=== PATIENT | female | born 1955 | race Caucasian/White ===

== ENCOUNTER 2020-06-04 12:57 | Outpatient (REF) | payer OTHER, SELFPAY ==
[2020-06-04 13:50] LABS: Glucose Urine UA NEG (NEG); Leukocyte Esterase Urine NEG (NEG); Nitrite Urine NEG (NEG); Urine Blood TRACE (NEG); Urine Ketones NEG (NEG); Urine Protein NEG (NEG-TRACE)
[2020-06-04 13:53] LABS: Appearance Urine CLEAR; Color Urine YELLOW
[2020-06-04 13:53] LABS: Hematocrit 41.5 % (37-47); Hemoglobin 13.7 g/dl (12.0-16.0); Mean Corpuscular Hemoglobin 30.9 pg (27.0-33.0); Mean Corpuscular Volume 93.5 fL (80-98); Mean Platelet Volume 9.2 fL (9.4-12.3); Platelet Count 206 X10*3/uL (160-400); Red Blood Count 4.44 X10*6/uL (4.20-5.50); Red Cell Distribution Width 13.1 % (11.0-16.0); White Blood Count 3.7 X10*3/uL (4.8-10.8)
[2020-06-04 14:03] LABS: WBC Urine 0-2 /HPF (0-4)
[2020-06-04 14:04] LABS: Mucus Urine 1+ /LPF; Squamous Epithelial Cell Urine TRACE /LPF
[2020-06-04 14:15] LABS: Alanine Aminotransferase 17 U/L (0-31); Albumin Level 4.2 g/dL (3.5-5.0); Alkaline Phosphatase 80 U/L (39-117); Anion Gap 10 (12-20); Aspartate Amino Transferase 17 U/L (5-31); Bilirubin Total 0.5 mg/dL (0.0-1.0); Blood Urea Nitrogen 11 mg/dL (9-16); C Reactive Protein 0.45 mg/dL (< or = 0.50); Calcium 9.1 mg/dL (8.4-10.2); Carbon Dioxide 30 mmol/L (22-29); Chloride 106 mmol/L (96-108); Cholesterol 219 mg/dL; Estimated Glomerular Filt Rate > 60; Glucose Fasting 84 mg/dL (60-99); HDL Cholesterol 57 mg/dL; LDL Cholesterol Calculated 146 mg/dl; Potassium 4.4 mmol/l (3.3-5.1); Sodium 142 mmol/L (135-145); Total Protein 6.4 g/dL (6.5-8.0); Triglycerides 83 mg/dL
[2020-06-04 14:32] LABS: SARS COV2 IgG Negative (Negative)
[2020-06-04 14:36] LABS: TSH reflex Free T4 0.38 mIU/mL (0.32-4.0); Vitamin D 25-OH Total 29.7 ng/mL (>30)
[2020-06-04 15:16] LABS: Erythrocyte Sedimentation Rate 11 MM/HR (0-20)
== END 2020-06-04 12:58 | disposition home or self-care (01) ==
LOC: HO.HMGCLDS 12:57
PROVIDERS: PCP Internal Medicine; Visit Provider Internal Medicine
DX: E78.5 Hyperlipidemia, unspecified (principal); Z00.00 Encounter for general adult medical examination without abnormal findings; E55.9 Vitamin D deficiency, unspecified
CPT/HCPCS: 36415; 80053; 80061; 81001; 82306; 84443; 85027; 85652; 86140; 86769

== ENCOUNTER 2020-07-26 16:15 | Outpatient (REF) | payer OTHER, SELFPAY ==
--- NOTE | 2020-07-26 16:20 | XR_ITS ---
EXAMINATION: XR CHEST CLINICAL INFORMATION: Shortness of breath COMPARISON: None TECHNIQUE: 2 views of the chest were obtained. FINDINGS: The cardiac and mediastinal contours are normal. The lungs are clear. There is no pleural effusion or pneumothorax. There are mild degenerative changes of the spine. XR/XR chest 2V IMPRESSION: No evidence for acute disease in the chest.
== END 2020-07-26 16:16 | disposition home or self-care (01) ==
LOC: HO.HMGCX 16:15
PROVIDERS: PCP Internal Medicine; Visit Provider Internal Medicine
DX: R06.02 Shortness of breath (principal); J45.909 Unspecified asthma, uncomplicated
CPT/HCPCS: 71046

== ENCOUNTER 2020-08-20 14:06 | Outpatient (REF) | payer OTHER, SELFPAY ==
[2020-08-20 15:15] LABS: MANUAL DIFF FLAG NO
[2020-08-20 15:17] LABS: Basophils Absolute Auto 0.1 X10*3/uL (0.0-0.2); Basophils Percent Auto 1.2 % (0-2); Eosinophils Absolute Auto 0.5 X10*3/uL (0.0-0.4); Eosinophils Percent Auto 9.2 % (0-4); Hematocrit 41.6 % (37-47); Hemoglobin 13.7 g/dl (12.0-16.0); Imm Gran Abs Auto 0.02 X10*3/uL (0.00-0.03); Imm Gran Pct Auto 0.4 % (0.0-0.4); Lymphocytes Absolute Auto 1.7 X10*3/uL (1.2-4.9); Mean Corpuscular HGB Conc 32.9 g/dl (31.0-35.0); Mean Corpuscular Hemoglobin 30.6 pg (27.0-33.0); Mean Corpuscular Volume 92.9 fL (80-98); Mean Platelet Volume 9.3 fL (9.4-12.3); Monocytes Absolute Auto 0.4 X10*3/uL (0.1-1.2); Monocytes Percent Auto 7.2 % (2-11); Neutrophils Absolute Auto 2.3 X10*3/uL (2.0-8.3); Platelet Count 222 X10*3/uL (160-400); Red Blood Count 4.48 X10*6/uL (4.20-5.50); Red Cell Distribution Width 12.7 % (11.0-16.0); White Blood Count 4.9 X10*3/uL (4.8-10.8)
== END 2020-08-20 14:07 | disposition home or self-care (01) ==
LOC: HO.LAB 14:06
PROVIDERS: PCP Internal Medicine; Visit Provider Internal Medicine Pulmonary Disease
DX: J45.909 Unspecified asthma, uncomplicated (principal); Z87.891 Personal history of nicotine dependence; Z91.09 Other allergy status, other than to drugs and biological substances
CPT/HCPCS: 36415; 82785; 85025; 86003

== ENCOUNTER 2020-09-13 15:19 | Outpatient (REF) | payer OTHER, SELFPAY ==
--- NOTE | 2020-09-13 16:52 | PFT_ITS ---
INDICATION: Shortness of breath. SPIROMETRY: The FEV1 to FVC 80% with an FEV1 of 2.61 L, which is 108% predicted, and an FVC of 3.27 L, which is 103% predicted. No significant response to bronchodilators noted. Maximum voluntary ventilation 110% predicted. LUNG VOLUMES: Total lung capacity 105% predicted with an expiratory reserve volume of 28% predicted and diffusion capacity of 84% predicted. COMPARISONS: None. INTERPRETATION: No obstructive nor restrictive ventilatory defects identified. No significant response to bronchodilators noted. Normal maximum voluntary ventilation. Lung volumes are normal except for low expiratory reserve volume secondary to an elevated BMI. Diffusion capacity is within normal limits. If asthma is in the differential, methacholine challenge may be helpful in assessing for hyper-reactive airways, otherwise clinical correlation warranted. Nabor Barr MD MR/MODL / [id number]
== END 2020-09-13 15:20 | disposition home or self-care (01) ==
LOC: HO.RESP 15:19
PROVIDERS: Visit Provider Internal Medicine Pulmonary Disease
DX: R06.02 Shortness of breath (principal)
CPT/HCPCS: 94060; 94727; 94729

== ENCOUNTER 2021-04-02 10:37 | Outpatient (REF) | payer OTHER, SELFPAY ==
[2021-04-02 13:44] LABS: Hematocrit 39.9 % (37-47); Hemoglobin 13.5 g/dl (12.0-16.0); Mean Corpuscular HGB Conc 33.8 g/dl (31.0-35.0); Mean Corpuscular Volume 91.7 fL (80-98); Mean Platelet Volume 9.4 fL (9.4-12.3); Platelet Count 255 X10*3/uL (160-400); Red Blood Count 4.35 X10*6/uL (4.20-5.50); White Blood Count 3.4 X10*3/uL (4.8-10.8)
[2021-04-02 14:17] LABS: Alanine Aminotransferase 18 U/L (0-31); Albumin Level 4.2 g/dL (3.5-5.0); Alkaline Phosphatase 74 U/L (39-117); Anion Gap 14 (12-20); Aspartate Amino Transferase 15 U/L (5-31); Bilirubin Total 0.4 mg/dL (0.0-1.0); Blood Urea Nitrogen 11 mg/dL (9-16); C Reactive Protein 0.27 mg/dL (< or = 0.50); Calcium 9.5 mg/dL (8.4-10.2); Carbon Dioxide 28 mmol/L (22-29); Chloride 106 mmol/L (96-108); Estimated Glomerular Filt Rate > 60; Glucose Random 86 mg/dL (60-115); Potassium 4.5 mmol/L (3.3-5.1); Rheumatoid Factor < 15.0 IU/mL (<15.0); Sodium 143 mmol/L (135-145); Total Protein 6.4 g/dL (6.5-8.0)
[2021-04-04 04:36] LABS: Immunoglobulin E 14 kU/L (<OR=114)
[2021-04-04 20:52] LABS: Anti Nuclear Antibody Screen POSITIVE (NEGATIVE)
[2021-04-08 21:46] LABS: Cyclic Citrullinated Peptide <16 UNITS
== END 2021-04-02 10:38 | disposition home or self-care (01) ==
LOC: HO.HMGCLDS 10:37
PROVIDERS: Internal Medicine Pulmonary Disease; PCP Internal Medicine; Visit Provider Internal Medicine
DX: J45.909 Unspecified asthma, uncomplicated (principal); M25.50 Pain in unspecified joint; Z91.09 Other allergy status, other than to drugs and biological substances
CPT/HCPCS: 36415; 80053; 82785; 85027; 86038; 86039; 86140; 86200; 86431

== ENCOUNTER 2021-06-19 14:04 | Outpatient (REF) | payer OTHER, SELFPAY ==
[2021-06-19 16:18] LABS: Appearance Urine CLEAR; Color Urine YELLOW; Glucose Urine UA NEG (NEG); Leukocyte Esterase Urine NEG (NEG); Nitrite Urine NEG (NEG); Specific Gravity - Urine <= 1.005 (1.005-1.025); Urine Blood TRACE (NEG); Urine Ketones NEG (NEG); Urine Protein NEG (NEG-TRACE)
[2021-06-19 16:42] LABS: WBC Urine 0-2 /HPF (0-4)
[2021-06-19 16:43] LABS: RBC Urine 0-2 /HPF (0); Squamous Epithelial Cell Urine TRACE /LPF
[2021-06-19 16:55] LABS: Vitamin D 25-OH Total 32.4 ng/mL (>30)
[2021-06-20 17:13] LABS: Complement C3 98 mg/dL (83-193)
[2021-06-23 13:41] LABS: Anti Nuclear Antibody Screen POSITIVE (NEGATIVE)
== END 2021-06-19 14:05 | disposition home or self-care (01) ==
LOC: HO.HMGCLDS 14:04
PROVIDERS: PCP Internal Medicine; Visit Provider Internal Medicine
DX: M35.9 Systemic involvement of connective tissue, unspecified (principal); E55.9 Vitamin D deficiency, unspecified
CPT/HCPCS: 36415; 81001; 82306; 86038; 86039; 86160

== ENCOUNTER 2023-02-15 11:40 | Outpatient (REF) | payer OTHER, SELFPAY ==
[2023-02-15 13:35] LABS: MANUAL DIFF FLAG NO
[2023-02-15 14:05] LABS: Basophils Absolute Auto 0.1 X10*3/uL (0.0-0.2); Basophils Percent Auto 1.5 % (0-2); Eosinophils Absolute Auto 0.1 X10*3/uL (0.0-0.4); Eosinophils Percent Auto 3.1 % (0-4); Hematocrit 38.7 % (37.0-47.0); Hemoglobin 12.9 g/dl (12.0-16.0); Imm Gran Abs Auto 0.01 X10*3/uL (0.00-0.03); Imm Gran Pct Auto 0.3 % (0.0-0.4); Lymphocytes Absolute Auto 1.2 X10*3/uL (1.2-4.9); Lymphocytes Percent Auto 37.3 % (20-40); Mean Corpuscular HGB Conc 33.3 g/dl (31.0-35.0); Mean Corpuscular Hemoglobin 31.4 pg (27.0-33.0); Mean Corpuscular Volume 94.2 fL (80.0-98.0); Mean Platelet Volume 9.8 fL (9.4-12.3); Monocytes Absolute Auto 0.3 X10*3/uL (0.1-1.2); Neutrophils Absolute Auto 1.6 x10*3/uL (2.0-8.3); Neutrophils Percent Auto 49.8 % (45-73); Platelet Count 202 X10*3/uL (160-400); Red Blood Count 4.11 X10*6/uL (4.20-5.50); White Blood Count 3.3 X10*3/uL (4.8-10.8)
[2023-02-15 15:10] LABS: Alanine Aminotransferase 13 U/L (0-31); Alkaline Phosphatase 73 U/L (39-117); Anion Gap 11 (12-20); Aspartate Amino Transferase 15 U/L (5-31); Bilirubin Total 0.5 mg/dL (0.0-1.0); Blood Urea Nitrogen 13 mg/dL (9-16); Calcium 9.5 mg/dL (8.4-10.2); Carbon Dioxide 27 mmol/L (22-29); Chloride 107 mmol/L (96-108); Cholesterol 235 mg/dL; Estimated Glomerular Filt Rate > 60; Glucose Fasting 93 mg/dL (60-99); HDL Cholesterol 49 mg/dL; LDL Cholesterol Calculated 160 mg/dl; Magnesium 2.1 mg/dL (1.6-2.6); Potassium 4.1 mmol/L (3.3-5.1); Sodium 141 mmol/L (135-145); Total Protein 6.6 g/dL (6.5-8.0); Triglycerides 133 mg/dL
[2023-02-15 15:15] LABS: TSH reflex Free T4 0.56 uIU/mL (0.32-4.0); Vitamin D 25-OH Total 59.8 ng/mL (>30)
[2023-02-15 16:42] LABS: Appearance Urine Clear; Color Urine Yellow; Glucose Urine UA Negative (Negative); Leukocyte Esterase Urine Trace (Negative); Nitrite Urine Negative (Negative); PH 6.5 (5.0-9.0); UMIC TRIGGER UA YES; Urine Blood Negative (Negative); Urine Ketones Negative (Negative); Urine Protein Negative (Neg-Trace)
[2023-02-15 16:47] LABS: Bacteria Urine None Seen (None Seen); Hyaline Casts Urine 0-2 /LPF (0-2); RBC Urine 0-2 /HPF (0-2); Squamous Epithelial Cell Urine 0-2 /HPF (0-2); WBC Urine 0-5 /HPF (0-5)
== END 2023-02-15 11:41 | disposition home or self-care (01) ==
LOC: HO.HMGCLDS 11:40
PROVIDERS: PCP Internal Medicine; Visit Provider Internal Medicine
DX: Z00.00 Encounter for general adult medical examination without abnormal findings (principal); E55.9 Vitamin D deficiency, unspecified; E78.5 Hyperlipidemia, unspecified
CPT/HCPCS: 36415; 80053; 80061; 81001; 82306; 83735; 84443; 85025

== ENCOUNTER 2023-02-15 12:40 | Outpatient (AMB) | payer OTHER, SELFPAY ==
[2023-02-15 12:43] VITALS: BP 126/70; PULSE 78; TEMP 36.6; O2SAT 96
--- NOTE | 2023-02-15 12:43 | AM.OFFWIN_ITS ---
Intake Vital Signs 02/15/23 12:43 Height 5 ft 3.5 in BP 126/70 Blood Pressure Location Lt brachial Position Sitting Pulse 78 Pulse Source Pulse Oximeter Temp 98 F Temp Source Oral Pulse Oximetry (%) 96 Oxygen Delivery Method Room Air Intake Visit Reasons: EST/growths on wrist and [id number] Intake Note: Pt is here today for growth skin on face, legs and arms, Pt states she been receiving them since June Patient Tobacco Use Status: Former Tobacco user Quit Date: 28 years old Allergies amoxicillin Allergy (Unknown, Verified 02/15/23 12:43) Unknown penicillin V Allergy (Unknown, Verified 02/15/23 12:43) Unknown Sulfa (Sulfonamide Antibiotics) Allergy (Unknown, Verified 02/15/23 12:43) Unknown Do you need a note to return to daycare/school/sports/work: No HPI EST/growths on wrist and [phone] HPI Details 67-year-old female presents to the office for a sick visit. Patient is reporting that she has a wart on the left wrist and on the left knee. She would like to know her options. [facility] Medical History (Updated 02/15/23 @ 13:45 by Stanley Arita MD) KARSTEN positive Annual physical exam Arthralgia Asthma Autoimmune disease DJD (degenerative joint disease), cervical Hyperlipemia Occipital neuralgia SOB (shortness of breath) Urinary incontinence Vitamin D deficiency Surgical History (Updated 01/01/23 @ 13:55 by Marlin Epstein MD) H/O colonoscopy No pertinent past surgical history Family History (Updated 01/01/23 @ 13:17 by Azeb Lawson Sofia) Father Heart problem Mother Cancer Sister Dementia Mental health disorder Brother Mental health disorder Sister Substance use disorder Social History Housing: House Patient Tobacco Use Status: Former Tobacco user Quit Date: 28 years old e-Cigarette/Vaping Use: Never Used Current occupational status: employed Cognitive needs: No Hearing needs: No Vision needs: Yes Physical Exam Vital Signs: Last Vital Signs Temp 98 F 02/15/23 12:43 Pulse 78 02/15/23 12:43 BP 126/70 02/15/23 12:43 Pulse Ox 96 02/15/23 12:43 Oxygen Delivery Method Room Air 02/15/23 12:43 Skin Other: Wart on the left wrist, on the dorsum of the wrist. Similar lesion on the left knee. Assessment & Plan Assessment & Plan (1) Wart: Code(s): B07.9 - Viral wart, unspecified Plan: Options explained. Surgical excision is an option or observation. Coding Level of Care Code Est Pt Level 3 (65260) Diagnoses Wart B07.9
== END 2023-02-15 14:18 | disposition home or self-care (01) ==
PROVIDERS: PCP Internal Medicine; Visit Provider Internal Medicine
DX: B07.9 Viral wart, unspecified (principal)
CPT/HCPCS: 99213

== ENCOUNTER 2023-03-25 12:38 | Outpatient (AMB) | payer OTHER, SELFPAY ==
[2023-03-25 12:54] VITALS: BP 128/80; PULSE 87; O2SAT 98; BMI 31.1
--- NOTE | 2023-03-25 12:54 | MHC.PC.OV ---
Vital Signs 03/25/23 12:54 Height 5 ft 3.5 in Weight 178 lb 6 oz BMI 31.1 BP 128/80 Blood Pressure Location Lt brachial Position Sitting Pulse 87 Pulse Source Pulse Oximeter Pulse Oximetry (%) 98 Oxygen Delivery Method Room Air Intake Visit Reasons: Skin growth Intake Note: Patient is here with skin growth on her nose, she was seen in the walk in in the past for it, now here to follow up. She is concerned bloodwork results, resiratory, GERD, and neuropathy. Allergies amoxicillin Allergy (Unknown, Verified 03/25/23 12:59) Unknown penicillin V Allergy (Unknown, Verified 03/25/23 12:59) Unknown Sulfa (Sulfonamide Antibiotics) Allergy (Unknown, Verified 03/25/23 12:59) Unknown Medication List - Last Reconciled 03/25/23 by Marlin Epstein MD acetylcysteine (NAC) 750 mg PO .every 2 days albuterol sulfate 90 mcg/actuation 2 puffs inhalation Q6H PRN alpha lipoic acid 200 mg PO .every 2 days ascorbate calcium (vitamin C) 500 mg PO DAILY cholecalciferol (vitamin D3) 7,000 mcg PO DAILY coenzyme Q10 60 mg PO DAILY [glucosamine chondroitin 168mg, 1200mg, 1000mg] loratadine (Claritin) 10 mg PO DAILY [Magnesium + Ashwagandha complex +125mg w/ D3,B6,Zn,Cu,K2 ] [Magnesium sect-malate and Glycinate complex 150-300mg ] mecobalamin (vitamin B12) 3,000 - 6,000 mcg PO DAILY omeprazole 20 mg PO DAILY PRN oregano oil-flaxseed oil 50-25 mg caps PO DAILY selenium 200 mcg PO DAILY triprolidine-pseudoephedrine 2.5-60 mg 1 tab PO Q4-6H PRN vitamin E mixed units PO DAILY Tobacco use date assessed: 03/25/23 Fall risk assessment: No Falls in past year Last assessed Fall Risk: 03/25/23 Dental Screening Dental Screen Date: 03/25/23 Did you have a dental visit in the last 12 months?: No Did you have a dental problem in the last 6 months where you did not have access to dental care?: No Was dental information given to patient?: Patient has dentist HPI Skin growth HPI Details Pt presents for f/u. Pt noticed a changing skin growth on her L hand and would like to see dermatology. [facility] Medical History KARSTEN positive Autoimmune disease SOB (shortness of breath) Asthma Arthralgia Vitamin D deficiency Hyperlipemia Annual physical exam Urinary incontinence Occipital neuralgia DJD (degenerative joint disease), cervical Surgical History H/O colonoscopy No pertinent past surgical history Family History Father Heart problem Mother Cancer Sister Dementia Mental health disorder Brother Mental health disorder Sister Substance use disorder Social History Housing: House Patient Tobacco Use Status: Former Tobacco user Quit Date: 28 years old e-Cigarette/Vaping Use: Never Used Current occupational status: employed Cognitive needs: No Hearing needs: No Vision needs: Yes Questionnaire Thrive Questionnaire Date Thrive assessed: 01/01/23 TIMMY-7 AMB Questionnaire TIMMY-7 Date TIMMY - 7 assessed: 01/01/23 Source: Developed by Drs. Edenilson Mcdowell, Ramila Díaz, Michael Muñoz and colleagues, with an educational grabiel from [employer]. Review of Systems Const All systems reviewed & are unremarkable except as noted in HPI and below Reports no additional complaints Eyes Reports no additional complaints ENT Reports no additional complaints Card Reports no additional complaints Resp Reports no additional complaints GI Reports no additional complaints Reports no additional complaints Physical exam (Primary Care) Vital Signs: Last Vital Signs Pulse 87 03/25/23 12:54 BP 128/80 03/25/23 12:54 Pulse Ox 98 03/25/23 12:54 Oxygen Delivery Method Room Air 03/25/23 12:54 BMI result Body Mass Index 31.1 Tobacco/Smoking Status: Tobacco use Status Tobacco use date assessed 03/25/23 03/25/23 13:05 Patient Tobacco Use Status Former Tobacco user 03/25/23 13:05 e-Cigarette/Vaping Use Never Used 03/25/23 13:05 Thrive Assessment: Date of Thrive Assessment Date Thrive assessed 01/01/23 03/25/23 13:05 Const General: no acute distress HENMT Head: Yes normal to inspection Neck Neck: Yes no lymphadenopathy and Yes supple Resp Effort & Inspection: normal respiratory effort Auscultation: clear to auscultation bilaterally Cardio Rhythm: regular rhythm Heart sounds: S1 normal heart sound present and S2 normal heart sound present GI Inspection: Yes normal to inspection Palpation (GI): Soft to palpation Percussion: Yes normal to percussion Auscultation: normal bowel sounds Skin Other: Dorsum of left hand 1 cm irregular borders scaly lesion Assessment and Plan Assessment & Plan (1) Seborrheic keratoses: Code(s): L82.1 - Other seborrheic keratosis Plan: Referred to dermatology (2) Hyperlipemia: Code(s): E78.5 - Hyperlipidemia, unspecified Plan: Low-cholesterol diet increase physical activity discussed with the patient recheck lipid profile in 6 months Orders: Orders Comprehensive [place]. Panel Fast 6 Months E78.5 - Hyperlipidemia, unspecified Lipid Panel 6 Months E78.5 - Hyperlipidemia, unspecified Referrals Dermatology Referral L82.1 - Other seborrheic keratosis Coding Level of Care Code Est Pt Level 3 (64317) Diagnoses Seborrheic keratoses L82.1 Hyperlipemia E78.5
== END 2023-03-25 13:51 | disposition home or self-care (01) ==
PROVIDERS: PCP Internal Medicine; Visit Provider Internal Medicine
DX: L82.1 Other seborrheic keratosis (principal); E78.5 Hyperlipidemia, unspecified
CPT/HCPCS: 99213

== ENCOUNTER 2023-09-13 15:01 | Outpatient (AMB) | payer OTHER, SELFPAY ==
[2023-09-13 15:02] VITALS: BP 122/70; PULSE 96; TEMP 36.9; O2SAT 98; BMI 31.4
--- NOTE | 2023-09-13 15:02 | AM.OFFWIN_ITS ---
Intake Vital Signs 09/13/23 15:02 Height 5 ft 3.5 in Weight 180 lb BMI 31.4 BP 122/70 Blood Pressure Location Lt brachial Position Sitting Pulse 96 Pulse Source Pulse Oximeter Temp 98.5 F Temp Source Temporal Artery Scan Pulse Oximetry (%) 98 Intake Visit Reasons: EP RT Toe nail almost off Intake Note: pt is here today for rt toe nail almost off started 3 days ago Patient Tobacco Use Status: Former Tobacco user Quit Date: 28 years old Allergies amoxicillin Allergy (Unknown, Verified 09/13/23 15:32) Unknown penicillin V Allergy (Unknown, Verified 09/13/23 15:32) Unknown Sulfa (Sulfonamide Antibiotics) Allergy (Unknown, Verified 09/13/23 15:32) Unknown Medication List - Last Reconciled 09/13/23 by Stanley Arita MD acetylcysteine (NAC) 750 mg PO .every 2 days albuterol sulfate 90 mcg/actuation 2 puffs inhalation Q6H PRN alpha lipoic acid 200 mg PO .every 2 days ascorbate calcium (vitamin C) 500 mg PO DAILY cholecalciferol (vitamin D3) 7,000 mcg PO DAILY coenzyme Q10 60 mg PO DAILY [glucosamine chondroitin 168mg, 1200mg, 1000mg] loratadine (Claritin) 10 mg PO DAILY [Magnesium + Ashwagandha complex +125mg w/ D3,B6,Zn,Cu,K2 ] [Magnesium sect-malate and Glycinate complex 150-300mg ] mecobalamin (vitamin B12) 3,000 - 6,000 mcg PO DAILY omeprazole 20 mg PO DAILY PRN oregano oil-flaxseed oil 50-25 mg caps PO DAILY selenium 200 mcg PO DAILY triprolidine-pseudoephedrine 2.5-60 mg 1 tab PO Q4-6H PRN vitamin E mixed units PO DAILY Do you need a note to return to daycare/school/sports/work: No HPI EP RT Toe nail almost off HPI Details 68 yr old female presents to the office for a sick visit. Playing pickle ball, her toe nail was avulsed. She would like the remainder of the toe nail removed. [facility] Medical History KARSTEN positive Autoimmune disease SOB (shortness of breath) Asthma Arthralgia Vitamin D deficiency Hyperlipemia Annual physical exam Urinary incontinence Occipital neuralgia DJD (degenerative joint disease), cervical Surgical History H/O colonoscopy No pertinent past surgical history Family History Father Heart problem Mother Cancer Sister Dementia Mental health disorder Brother Mental health disorder Sister Substance use disorder Social History Housing: House Patient Tobacco Use Status: Former Tobacco user Quit Date: 28 years old e-Cigarette/Vaping Use: Never Used Current occupational status: employed Cognitive needs: No Hearing needs: No Vision needs: Yes Physical Exam Vital Signs: Last Vital Signs Temp 98.5 F 09/13/23 15:02 Pulse 96 09/13/23 15:02 BP 122/70 09/13/23 15:02 Pulse Ox 98 09/13/23 15:02 BMI result Body Mass Index 31.4 Office Procedures Nail I&D/Excision Details: Right foot: Great toe. Partially avulsed nail was held with a forcep and tugged at, the remainder of the nail became loose. With a sharp scission, cutaneous fibers snipped and the nail came out free. Patient tolerated the procedure. Minimal bleeding 47898-[id number] of nail plate, partial or completed, single Procedure code (CPT) selection complete Assessment & Plan Assessment & Plan (1) Nail avulsion, toe: Code(s): S91.209A - Unspecified open wound of unspecified toe(s) with damage to nail, initial encounter Plan: See procedure section Orders: Orders AMB Nail I&D/Excision Today S91.209A - Unspecified open wound of unspecified toe(s) with damage to nail, initial encounter Coding Level of Care Code Est Pt Level 3 (21273) Diagnoses Nail avulsion, toe S91.209A CPT Codes I&D Nail Bed/Hematoma - CPT: 58608-[id number] of nail plate, partial or completed, single ([id number])
== END 2023-09-13 16:02 | disposition home or self-care (01) ==
PROVIDERS: PCP Internal Medicine; Visit Provider Internal Medicine
DX: S91.201A Unspecified open wound of right great toe with damage to nail, initial encounter (principal)
CPT/HCPCS: 11730; 99213

== ENCOUNTER 2024-01-07 11:35 | Outpatient (REF) | payer OTHER, SELFPAY ==
[2024-01-07 13:42] LABS: Alanine Aminotransferase 14 U/L (0-31); Albumin Level 4.1 g/dL (3.5-5.0); Alkaline Phosphatase 61 U/L (39-117); Anion Gap 13 (12-20); Aspartate Amino Transferase 16 U/L (5-31); Bilirubin Total 0.6 mg/dL (0.0-1.0); Blood Urea Nitrogen 13 mg/dL (9-16); Calcium 9.4 mg/dL (8.4-10.2); Carbon Dioxide 25 mmol/L (22-29); Chloride 109 mmol/L (96-108); Cholesterol 225 mg/dL (<200); Estimated Glomerular Filt Rate > 60; Glucose Fasting 90 mg/dL (60-99); HDL Cholesterol 56 mg/dL (>40); LDL Cholesterol Calculated 153 mg/dL (<100); Sodium 143 mmol/L (135-145); Total Protein 6.7 g/dL (6.5-8.0); Triglycerides 84 mg/dL (<150)
[2024-01-07 14:00] LABS: Vitamin D 25-OH Total 42.2 ng/mL (>30)
== END 2024-01-07 11:36 | disposition home or self-care (01) ==
LOC: HO.HMGCLDS 11:35
PROVIDERS: PCP Internal Medicine; Visit Provider Internal Medicine
DX: E78.5 Hyperlipidemia, unspecified (principal); E55.9 Vitamin D deficiency, unspecified
CPT/HCPCS: 36415; 80053; 80061; 82306

== ENCOUNTER 2024-01-31 11:23 | Outpatient (REF) | payer OTHER, SELFPAY ==
[2024-01-31 13:10] LABS: MANUAL DIFF FLAG NO
[2024-01-31 13:20] LABS: Eosinophils Absolute Auto 0.1 X10*3/uL (0.0-0.4); Eosinophils Percent Auto 2.6 % (0-4); Hematocrit 38.8 % (37.0-47.0); Hemoglobin 13.2 g/dl (12.0-16.0); Imm Gran Abs Auto 0.01 X10*3/uL (0.00-0.03); Imm Gran Pct Auto 0.3 % (0.0-0.4); Lymphocytes Absolute Auto 1.3 X10*3/uL (1.2-4.9); Lymphocytes Percent Auto 33.6 % (20-40); Mean Corpuscular Hemoglobin 31.4 pg (27.0-33.0); Mean Corpuscular Volume 92.2 fL (80.0-98.0); Mean Platelet Volume 9.4 fL (9.4-12.3); Monocytes Absolute Auto 0.3 X10*3/uL (0.1-1.2); Monocytes Percent Auto 7.3 % (2-11); Neutrophils Absolute Auto 2.1 x10*3/uL (2.0-8.3); Neutrophils Percent Auto 55.2 % (45-73); Platelet Count 201 X10*3/uL (160-400); Red Blood Count 4.21 X10*6/uL (4.20-5.50); Red Cell Distribution Width 13.1 % (11.0-16.0); White Blood Count 3.8 X10*3/uL (4.8-10.8)
[2024-01-31 13:55] LABS: TSH reflex Free T4 0.77 uIU/mL (0.32-4.0)
== END 2024-01-31 11:24 | disposition home or self-care (01) ==
LOC: HO.HMGCLDS 11:23
PROVIDERS: PCP Internal Medicine; Visit Provider Internal Medicine
DX: Z00.00 Encounter for general adult medical examination without abnormal findings (principal)
CPT/HCPCS: 36415; 84443; 85025

== ENCOUNTER 2024-02-03 13:13 | Outpatient (AMB) | payer OTHER, SELFPAY ==
[2024-02-03 13:30] VITALS: BP 120/66; PULSE 86; O2SAT 98; BMI 30.3
--- NOTE | 2024-02-03 13:30 | A.OFFPC_ITS ---
Vital Signs 02/03/24 13:30 Height 5 ft 3.5 in Weight 174 lb BMI 30.3 BP 120/66 Blood Pressure Location Rt brachial Position Sitting Pulse 86 Pulse Source Pulse Oximeter Pulse Oximetry (%) 98 Oxygen Delivery Method Room Air Intake Visit Reasons: Annual Physical Intake Note: Pt is here today for PE. Allergies amoxicillin Allergy (Unknown, Verified 02/03/24 13:32) Unknown penicillin V Allergy (Unknown, Verified 02/03/24 13:32) Unknown Sulfa (Sulfonamide Antibiotics) Allergy (Unknown, Verified 02/03/24 13:32) Unknown Medication List - Last Reconciled 02/03/24 by Marlin Epstein MD albuterol sulfate 90 mcg/actuation 2 puffs inhalation Q6H PRN chlorpheniramine maleate 4 mg PO .prn cholecalciferol (vitamin D3) 7,000 mcg PO DAILY coenzyme Q10 60 mg PO DAILY [Magnesium + Ashwagandha complex +125mg w/ D3,B6,Zn,Cu,K2 ] [Magnesium sect-malate and Glycinate complex 150-300mg ] mecobalamin (vitamin B12) 3,000 - 6,000 mcg PO DAILY omeprazole 20 mg PO DAILY PRN sertraline (Zoloft) 50 mg PO DAILY triprolidine-pseudoephedrine 2.5-60 mg 1 tab PO Q4-6H PRN Tobacco use date assessed: 02/03/24 Fall risk assessment: No Falls in past year Dental Screening Dental Screen Date: 02/03/24 Did you have a dental visit in the last 12 months?: Yes Did you have a dental problem in the last 6 months where you did not have access to dental care?: No Was dental information given to patient?: Patient has dentist HPI Annual Physical HPI Details Pt presents for PE. Pt has been under lot of stress because of younger son has severe depression and was hospitalized. Patient has been established with a family counselor every 1-2 weeks. But reports feeling depressed. [facility] Medical History KARSTEN positive Autoimmune disease SOB (shortness of breath) Asthma Arthralgia Vitamin D deficiency Hyperlipemia Annual physical exam Urinary incontinence Occipital neuralgia DJD (degenerative joint disease), cervical Surgical History H/O colonoscopy No pertinent past surgical history Family History Father Heart problem Mother Cancer Sister Dementia Mental health disorder Brother Mental health disorder Sister Substance use disorder Social History Housing: House Patient Tobacco Use Status: Former Tobacco user e-Cigarette/Vaping Use: Never Used service: No Current occupational status: employed Cognitive needs: No Hearing needs: No Vision needs: Yes Questionnaire PHQ-9 Over the last 2 weeks, how often have you been bothered by any of the following problems? 1. Little interest or pleasure in doing things: several days 2. Feeling down, depressed, or hopeless: several days 3. Trouble falling or staying asleep, or sleeping too much: several days 4. Feeling tired or having little energy: several days 5. Poor appetite or overeating: not at all 6. Feeling bad about yourself - or that you are a failure or have let yourself or your family down: several days 7. Trouble concentrating on things, such as reading the newspaper or watching television: several days 8. Moving or speaking so slowly that other people could have noticed. Or the opposite - being so fidgety or restless that you have been moving around a lot more than usual: not at all 9. Thoughts that you would be better off or of hurting yourself in some way: several days Total score: 7 Depression Screening Interpretation: Negative Depression Screening Done: Yes Source: Developed by Drs. Edenilson Mcdowell, Ramila Díaz, Michael Muñoz and colleagues, with an educational grabiel from [employer]. Thrive Questionnaire Date Thrive assessed: 02/03/24 I am a: Patient What is your living situation today?: I have a steady place to live Within the past 12 months, did the food you bought not last and you didn't have the money to get more?: Never true Within the past 12 months, did you worry whether your food would run out before you got money to buy more?: Never true Do you have trouble paying for medicines?: No Do you have trouble getting transportation to medical appointments?: No Do you have trouble paying your heating and electricity bill?: No Do you have trouble taking care of your child, family member or friend?: I choose not to answer this question Do you have trouble with day-to-day activities such as bathing, preparing meals, shopping, managing finances, etc.?: No Are you currently unemployed and looking for a job?: No Are you interested in more education?: No Please select the resources that you would like help with: Care for elder or disabled Currently or been in a relationship where the following occur: I choose not to answer THRIVE Score: 0 AUDIT C Alcohol Use Questionnaire (AUDIT-C) 1. How often do you have a drink containing alcohol?: Monthly or less 2. How many drinks containing alcohol do you have on a typical day when you are drinking?: 1 or 2 3. How often do you have six or more drinks on one occasion?: Never Total Score: 1 TIMMY-7 AMB Questionnaire TIMMY-7 Date TIMMY - 7 assessed: 02/03/24 Feeling nervous, anxious, or on edge: 1 = Several days Not being able to stop or control worryin = Not at all Worrying too much about different things: 0 = Not at all Trouble relaxin = Several days Being so restless that it is hard to sit still: 0 = Not at all Becoming easily annoyed or irritable: 1 = Several days Feeling afraid as if something awful might happen: 1 = Several days Total TIMMY-7 score (0-4 normal; 5-9 mild; 10-14 moderate; 15-21 severe): 4 Source: Developed by Drs. Edenilsno Mcdowell, Ramila Díaz, Michael Muñoz and colleagues, with an educational grabiel from [employer]. Review of Systems Const All systems reviewed & are unremarkable except as noted in HPI and below Reports no additional complaints Eyes Reports no additional complaints ENT Reports no additional complaints Card Reports no additional complaints Resp Reports no additional complaints GI Reports no additional complaints Reports no additional complaints Physical exam (Primary Care) Vital Signs: Last Vital Signs Pulse 86 02/03/24 13:30 BP 120/66 02/03/24 13:30 Pulse Ox 98 02/03/24 13:30 Oxygen Delivery Method Room Air 02/03/24 13:30 BMI result Body Mass Index 30.3 Tobacco/Smoking Status: Tobacco use Status Tobacco use date assessed 02/03/24 02/03/24 13:33 Patient Tobacco Use Status Former Tobacco user 02/03/24 13:33 e-Cigarette/Vaping Use Never Used 02/03/24 13:33 PHQ-9: PHQ-9 Score PHQ-9: Total score 7 02/03/24 13:44 Depression Screening Interpretation: Negative Thrive Assessment: Date of Thrive Assessment Date Thrive assessed 02/03/24 02/03/24 13:44 Currently or been in a relationship where the following occur: I choose not to answer Const General: no acute distress HENMT Head: Yes normal to inspection Ears: hearing grossly normal bilaterally Face and sinus: Yes normal facial exam Mouth: Normal oral and palatal mucosa present Eyes General: appearance normal, both eyes and all related structures Neck Neck: Yes no lymphadenopathy and Yes supple Thyroid: diffusely enlarged Resp Effort & Inspection: normal respiratory effort Auscultation: clear to auscultation bilaterally Cardio Rhythm: regular rhythm Heart sounds: S1 normal heart sound present and S2 normal heart sound present GI Inspection: Yes normal to inspection Palpation (GI): Soft to palpation Percussion: Yes normal to percussion Auscultation: normal bowel sounds Assessment and Plan Assessment & Plan (1) Annual physical exam: Code(s): Z00.00 - Encounter for general adult medical examination without abnormal findings Plan: well balanced diet, regular exercise discussed, she is up-to-date with the mammogram. Patient declined colonoscopy Cologuard will be sent (2) Hyperlipemia: Code(s): E78.5 - Hyperlipidemia, unspecified Plan: Continue low cholesterol diet (3) Anxiety and depression: Code(s): F41.9 - Anxiety disorder, unspecified; F32.A - Depression, unspecified Plan: start Zoloft 25 mg for 1st 2 weeks and increase to 50 mg. Patient will continue counseling and will follow-up in 2 months (4) Incontinence in female: Comment: Chronic urinary incontinence Code(s): R32 - Unspecified urinary incontinence Plan: Referred to urology Orders: Referrals Urology Referral R32 - Unspecified urinary incontinence Cologuard Test Z12.11 - Encounter for screening for malignant neoplasm of colon, Z12.12 - Encounter for screening for malignant neoplasm of rectum Medications: New sertraline (Zoloft) 1/2 tabl qd for 2 weeks, then 1 tabl qd 50 mg PO DAILY 30 tabs 3RF Coding Level of Care Code Est Pt Prev Care >65y(37148) Diagnoses Annual physical exam Z00.00 Hyperlipemia E78.5 Anxiety and depression F41.9; F32.A Incontinence in female R32
== END 2024-02-03 15:06 | disposition home or self-care (01) ==
PROVIDERS: PCP Internal Medicine; Visit Provider Internal Medicine
DX: Z00.00 Encounter for general adult medical examination without abnormal findings (principal); E78.5 Hyperlipidemia, unspecified; F41.9 Anxiety disorder, unspecified; F32.A Depression, unspecified; R32 Unspecified urinary incontinence
CPT/HCPCS: 99397

== ENCOUNTER 2024-04-14 09:04 | Outpatient (AMB) | payer OTHER, SELFPAY ==
--- NOTE | 2024-04-14 09:09 | A.OFFVIS_ITS ---
Intake Visit Reasons: urinary incontinence Intake Note: New patient is present for Urinary incontinence/Urge Frequency/Nocturia Patient has not tried any medications for bladder, but states that in past she was seeing a Dr in [place] that assisted with Kegel therapy but not for a long time She is interested in Pelvic Floor therapy. No history of UTI or bladder Infections Antibiotic Allergies: Amoxicillin, Penicillin, Sulfa antibiotics PVR: 0ml Manager Bar Required: No Accompanied by: Self / Same As Patient Allergies amoxicillin Allergy (Unknown, Verified 04/14/24 09:19) Unknown penicillin V Allergy (Unknown, Verified 04/14/24 09:19) Unknown Sulfa (Sulfonamide Antibiotics) Allergy (Unknown, Verified 04/14/24 09:19) Unknown HPI Comments Details: Darlene is a pleasant female. She is a patient of Dr. Hinojosa. She is seen for the following urologic conditions - urinary urgency frequency Urinary urgency frequency Progressive Involved with bathroom planning Wears a liner Minimal accidents No prior medications Will trial oxybutynin with a plan to move to anticholinergic with less side effects PFSH Medical History KARSTEN positive Autoimmune disease SOB (shortness of breath) Asthma Arthralgia Vitamin D deficiency Hyperlipemia Annual physical exam Urinary incontinence Occipital neuralgia DJD (degenerative joint disease), cervical Surgical History H/O colonoscopy No pertinent past surgical history Family History Father Heart problem Mother Cancer Sister Dementia Mental health disorder Brother Mental health disorder Sister Substance use disorder Social History Housing: House Patient Tobacco Use Status: Former Tobacco user e-Cigarette/Vaping Use: Never Used service: No Current occupational status: employed Cognitive needs: No Hearing needs: No Vision needs: Yes Review of Systems Const Denies chills and Denies fever(s) Card Reports no additional complaints and Denies syncope Resp Denies cough GI Denies abdominal pain and Denies heartburn Reports as per HPI and Denies change in libido Neuro Denies syncope Psych Denies change in libido Endo Denies change in libido Physical Exam Const General: cooperative, healthy appearing, comfortable and no acute distress Orientation/consciousness: patient oriented x3 HEENT Face and sinus: Yes normal facial exam Mouth: moist mucous membranes Neck Neck: Yes normal visual inspection, Yes full ROM and Yes trachea midline Chest Chest palpation & inspection: normal inspection of the chest Resp Effort & Inspection: normal respiratory effort, able to speak in complete sentences and no respiratory distress GI Inspection: Yes normal to inspection Back/Spine/Pelvis Cervical Spine: normal cervical lordosis Thoracic/Lumbar Spine: thoracic and lumbar spine normal to inspection Skin General skin exam: no rashes or lesions noted Neuro General: patient oriented x3, gait normal, tone normal and moves all extremities Extrem General: Yes normal to inspection and Yes capillary refill normal Office Procedures Post Void Residual Post Residual Void Post Void Residual (PVR): 0 [id number] Void Residual by ultrasound Results AMB Urinalysis, Automated UA Leukoctes 0 Diane/uL Last Edit by NADEGE Larkin on 04/14/24 09:26 UA Nitrite Negative Last Edit by NADEGE Larkin on 04/14/24 09:26 UA Urobilinogen 0.2 mg/dL Last Edit by SANDOVAL Larkin on 04/14/24 09:2 6 UA Protein 15 mg/dL Last Edit by NADEGE Larkin on 04/14/24 09:26 UA pH 6.0 Last Edit by Saira Younger Sofia on 04/14/24 09:26 UA Blood 0 Ezio/uL Last Edit by NADEGE Larkin on 04/14/24 09:26 UA Specific [place] 1.025 Last Edit by NADEGE Larkin on 04/14/24 09: 26 UA Ketone Negative Last Edit by SANDOVAL Larkin on 04/14/24 09:26 UA Bilirubin 0 mg/dL Last Edit by NADEGE Larkin on 04/14/24 09:26 UA Glucose 0 mg/dL Last Edit by SANDOVAL Larkin on 04/14/24 09:26 Results Reviewed Results Reviewed: Laboratory Last Values Urine pH (Auto) 6.0 04/14/24 09:25 Specific [place] (Auto) 1.025 04/14/24 09:25 Urine Protein (Auto) 15 mg/dL 04/14/24 09:25 Glucose (UA)(Auto) 0 mg/dL 04/14/24 09:25 Urine Ketones (Auto) Negative 04/14/24 09:25 Urine Blood (Auto) 0 Ezio/uL 04/14/24 09:25 Urine Nitrite (Auto) Negative 04/14/24 09:25 Urine Bilirubin (Auto) 0 mg/dL 04/14/24 09:25 Urine Urobilinogen (Auto) 0.2 mg/dL 04/14/24 09:25 Leukocyte Esterase (Auto) 0 Diane/uL 04/14/24 09:25 Assessment & Plan Assessment & Plan (1) Urinary urgency: Code(s): R39.15 - Urgency of urination Category: Medical (2) Incontinence in female: Comment: Chronic urinary incontinence Code(s): R32 - Unspecified urinary incontinence Category: Medical Plan Two month follow-up Orders: Orders AMB Post Void Residual by ultrasound 04/14/24 R32 - Unspecified urinary incontinence AMB Urinalysis Automated 04/14/24 Z13.9 - Encounter for screening, unspecified Medications: New oxybutynin chloride ER 5 mg PO DAILY 30 tabs 1RF 30 days R39.15 - Urgency of urination, N32.81 - Overactive bladder Patient Instructions: Imaging studies, laboratory and physical exam results were discussed and reviewed in detail. No major barriers to patient understanding were identified. An opportunity to ask questions regarding the treatment plan was provided. All questions were answered. The patient expressed understanding and agreement with the above treatment plan. The patient is aware they should contact our office by phone for worsening of their current condition or the appearance of new urologic symptoms. Compliance is encouraged with any medications and followup testing that is ordered. It is a privilege to participate in the urologic care of your patient. If you have any questions or concerns regarding treatment for the above conditions, or other urologic issues, please do not hesitate to contact me. The office telephone contact is [phone]. This note is constructed using voice recognition software. While every effort has been made to ensure accuracy cancer registry coordinator errors may have been included. Yours sincerely, Dr Tarun Chew MD, [facility] - Urology Providers of Expert, Compassionate Care for the Genitourinary System Coding Level of Care Code New Pt Level 4 (33236) Diagnoses Urinary urgency R39.15 Incontinence in female R32 CPT Codes Post Residual Void - PVR CPT Code: 44434-Tgmr Void Residual by ultrasound ([id number])
== END 2024-04-14 10:12 | disposition home or self-care (01) ==
PROVIDERS: PCP Internal Medicine; Visit Provider Urology
DX: R39.15 Urgency of urination (principal); R32 Unspecified urinary incontinence
CPT/HCPCS: 99204

== ENCOUNTER → 2024-04-14 09:04 | Outpatient (BNVA) | payer OTHER, SELFPAY | PROVIDERS: PCP Internal Medicine; Visit Provider Urology | DX: R32 Unspecified urinary incontinence (principal); R39.15 Urgency of urination | CPT/HCPCS: 51798; 81003 ==

== ENCOUNTER → 2024-04-19 08:16 | Outpatient (RCR) | payer OTHER, SELFPAY ==
--- NOTE | 2023-03-01 11:58 | MHC.PT.EP ---
[facility] [place] [facility] [place] [facility] [place] [facility] [address] [phone] F: [phone] F: [phone] F: [phone] F: [phone] Physical Therapy Plan of Care Date of Evaluation: Date of Surgery: none. Diagnosis: pain in L knee. Assessment: Patient is a 67 year old R handed female who presents with s/s consistent with L knee pain. She does enjoy being active and playing pickleball. She works with daily job demands including [employer]. Patient past medical history includes lyme, asthma, back pain. Current impairments include pain, ROM, strength, activity tolerance and functional mobility. Functional limitations include decreased ability to walk, stand, negotiate stairs and play pickleball. Patient is motivated with good rehab potential. Skilled PT will address impairments and functional limitations in order to achieve goals. Frequency and Duration: The patient will be seen 2x/week for 5 weeks Short Term Goals: I with HEP - 2 weeks Ext full - 3 weeks normal PF mobility - 3 weeks Mcfp Goals: strength 4+/5 grossly - 5 weeks LEFS 56/80 or better - 5 weeks return to pickleball pain free - 5 weeks Treatment Plan: Modalities to reduce pain, spasms and effusion. Manual therapy to restore motion and function. Therapeutic exercise to improve strength and flexibility. Neuromuscular re-education for posture and balance. Therapeutic activities to return to functional activities of daily living. Electronically signed by: Feliciano Quevedo PT Please sign and return to therapist. Thank you for your referral.
--- NOTE | 2024-04-19 08:16 | MHC.PT.DC ---
[facility] [place] [facility] [place] [facility] [place] [facility] [address] Venkat Duncan [address] [phone] F: [phone] F: [phone] F: [phone] F: [phone] Physical Therapy Discharge Report Diagnosis: pain in L knee. Date of Surgery: none. Date of Evaluation: 03/01/23 Date of Discharge: 07/24/23 Treatments to Date: 6 Cancellations to Date: No Shows to Date: Discharge Status: Independent with HEP Patient Elected to Stop Discharge Summary: 04/16/23: pt progressing well with skilled PT. notes some hip discomfort with standing hip abd/ext so we will hold. added BKFO to HEP. 03/23/23: pt has been feeling better still. responds well to PT. she notes lack of HEP compliance from not feeling well due to lyme treatment. 03/18/23: pt has been feeling better overall. IASTM has been helping. continue to progress as tolerated with strength intervention. 03/16/23: reviewed HEP. added IASTM to ITB. reviewed importance of hip strength intervention. 03/12/23: pt notes some back pain the last few days. we held on progression today but issued HEP. 03/08/23: progressed pt with ROM, strength, functional activities. no adverse reactions. issue HEP NV. Patient is a 67 year old R handed female who presents with s/s consistent with L knee pain. She does enjoy being active and playing pickleball. She works with daily job demands including [employer]. Patient past medical history includes lyme, asthma, back pain. Current impairments include pain, ROM, strength, activity tolerance and functional mobility. Functional limitations include decreased ability to walk, stand, negotiate stairs and play pickleball. Patient is motivated with good rehab potential. Skilled PT will address impairments and functional limitations in order to achieve goals. Electronically signed by: Feliciano Quevedo, PT Please sign and return to therapist. Thank you for your referral.
== END | disposition home or self-care (01) ==
LOC: HO.PTCHIC 03-01 10:55
PROVIDERS: PCP Internal Medicine; Visit Provider Internal Medicine
DX: M25.562 Pain in left knee (principal)
CPT/HCPCS: 97110; 97140; 97162

== ENCOUNTER 2024-06-15 10:01 | Outpatient (AMB) | payer OTHER, SELFPAY ==
--- NOTE | 2024-06-15 10:01 | A.OFFVIS_ITS ---
Intake Visit Reasons: 2m follow up Intake Note: Patient presents today for follow up on: Urinary incontinence/Urge Frequency/Nocturia Urology Medications: none Blood Thinner: none Antibiotic Allergies: Amoxicillin, Penicillin, Sulfa antibiotics PVR: 0ml's Metal Handler Required: No Accompanied by: Self / Same As Patient Allergies amoxicillin Allergy (Unknown, Verified 06/15/24 10:59) Unknown penicillin V Allergy (Unknown, Verified 06/15/24 10:59) Unknown Sulfa (Sulfonamide Antibiotics) Allergy (Unknown, Verified 06/15/24 10:59) Unknown Medication List - Last Reconciled 06/15/24 by TIEN Sky albuterol sulfate 90 mcg/actuation 2 puffs inhalation Q6H PRN chlorpheniramine maleate 4 mg PO .prn cholecalciferol (vitamin D3) 7,000 mcg PO DAILY mirabegron ER (Myrbetriq) 25 mg PO DAILY 30 days HPI Comments Details: Darlene Harrington is a pleasant 69 year old female patient of Dr. Hinojosa. She has a past medical history of KARSTEN positive, autoimmune disease, asthma, arthralgia, vitamin-D deficiency, hyperlipidemia, urinary incontinence, occipital neuralgia and degenerative joint disease cervical. She presents to the office today for follow-up of her ongoing lower urinary tract symptoms. Of note, patient was seen approximately [address] Cehw at which time she was started on oxybutynin. In discussion with the patient today she reports noting improvement in lower urinary tract symptoms however had stopped taking the medication due to dizziness. She reports feeling symptoms are worsening. She continues to wear Shavonne pads and is involved in bathroom planning. She discusses having attended pelvic floor therapy through [facility] many years ago and found this helpful. We discussed at length potential causes of lower urinary tract symptoms patient was experiencing. She does have a previous history of 2 vaginal births. She discusses her son's ongoing medical issues. She otherwise denies dysuria, foul smelling urine, changes to urinary stream, flank pain, fever, and or chills. In office urinalysis results reviewed with the patient today. PVR 0 mL. We discussed obtaining retroperitoneal ultrasound for further assessment evaluation. She otherwise offers no other issues or concerns at this time. [facility] Medical History KARSTEN positive Autoimmune disease SOB (shortness of breath) Asthma Arthralgia Vitamin D deficiency Hyperlipemia Annual physical exam Urinary incontinence Occipital neuralgia DJD (degenerative joint disease), cervical Surgical History H/O colonoscopy No pertinent past surgical history Family History Father Heart problem Mother Cancer Sister Dementia Mental health disorder Brother Mental health disorder Sister Substance use disorder Social History Housing: House Patient Tobacco Use Status: Former Tobacco user e-Cigarette/Vaping Use: Never Used service: No Current occupational status: employed Cognitive needs: No Hearing needs: No Vision needs: Yes Review of Systems Const All systems reviewed & are unremarkable except as noted in HPI and below Physical Exam Const General: cooperative, healthy appearing, comfortable, no acute distress, well developed, alert and awake Nutritional Appearance: overweight Orientation/consciousness: patient oriented x3 Limitations: no limitations HEENT Head: Yes normal to inspection, Yes normocephalic and Yes atraumatic Ears: hearing grossly normal bilaterally Eyes General: appearance normal, both eyes and all related structures Neck Neck: Yes normal visual inspection and Yes trachea midline Chest Chest palpation & inspection: normal inspection of the chest Resp Effort & Inspection: normal respiratory effort and able to speak in complete sentences Cardio Rate: regular rate GI Inspection: Yes normal to inspection General: Yes no CVA tenderness Back/Spine/Pelvis Back: no CVA tenderness Skin General skin exam: no rashes or lesions noted Neuro General: patient oriented x3 Extrem General: Yes normal to inspection Psych Appearance: grossly normal and well kempt Mental Status: mental status grossly normal Speech and movement: Normal speech and movement present and Clear speech present Affect: normal affect Attitude: cooperative Thought process: Normal thought process present Thought content: Normal thought content present Insight: Fair insight present (Psych) Judgement: Fair judgement present (Psych) Office Procedures Post Void Residual Post Residual Void Post Void Residual (PVR): 0 [id number]-[id number] Void Residual by ultrasound Results AMB Urinalysis, Automated UA Leukoctes 0 Diane/uL Last Edit by SIGKATreno Gaines on 06/15/24 10:34 UA Nitrite Negative Last Edit by XL Videoharry on 06/15/24 10:34 UA Urobilinogen 0.2 mg/dL Last Edit by XL Videoharry on 06/15/24 10:34 UA Protein 0 mg/dL Last Edit by [employer] on 06/15/24 10:34 UA pH 8.0 Last Edit by [employer] on 06/15/24 10:34 UA Blood 0 Ezio/uL Last Edit by [employer] on 06/15/24 10:34 UA Specific [place] 1.010 Last Edit by [employer] on 06/15/24 10:34 UA Ketone Last Edit by [employer] on 06/15/24 10:34 UA Bilirubin 0 mg/dL Last Edit by [employer] on 06/15/24 10:34 UA Glucose 0 mg/dL Last Edit by [employer] on 06/15/24 10:34 Results Reviewed Results Reviewed: Laboratory Last Values Urine pH (Auto) 8.0 06/15/24 10:11 Specific [place] (Auto) 1.010 06/15/24 10:11 Urine Protein (Auto) 0 mg/dL 06/15/24 10:11 Glucose (UA)(Auto) 0 mg/dL 06/15/24 10:11 Urine Blood (Auto) 0 Ezio/uL 06/15/24 10:11 Urine Nitrite (Auto) Negative 06/15/24 10:11 Urine Bilirubin (Auto) 0 mg/dL 06/15/24 10:11 Urine Urobilinogen (Auto) 0.2 mg/dL 06/15/24 10:11 Leukocyte Esterase (Auto) 0 Diane/uL 06/15/24 10:11 Assessment & Plan Assessment & Plan (1) Incontinence in female: Comment: Chronic urinary incontinence Code(s): R32 - Unspecified urinary incontinence Category: Medical (2) Urinary urgency: Code(s): R39.15 - Urgency of urination Category: Medical Plan In office urinalysis results reviewed the patient today; as noted above. PVR 0 mL. Will refer to pelvic floor therapy for further assessment evaluation. Will obtain retroperitoneal ultrasound for further assessment evaluation. Discussed bladder triggers/irritants. Stop oxybutynin. Start Myrbetriq as discussed and prescribed. Will add for urodynamics; for further assessment evaluation. Follow-up in 1-3 months with imaging to be completed prior and PVR; or sooner with any issues, concerns, and or questions. Orders: Orders AMB Urinalysis Automated Today Z13.9 - Encounter for screening, unspecified US retroperitoneal comp Today R32 - Unspecified urinary incontinence, R39.15 - Urgency of urination AMB Post Void Residual by ultrasound Today R39.15 - Urgency of urination PT Evaluation and Treatment Today R32 - Unspecified urinary incontinence, R39.15 - Urgency of urination Medications: New mirabegron ER (Myrbetriq) 25 mg PO DAILY 30 days 30 tabs 3RF N30.10 - Interstitial cystitis (chronic) without hematuria, N32.81 - Overactive bladder, R35.1 - Nocturia, R39.15 - Urgency of urination Coding Level of Care Code Est Pt Level 4 (57129) Diagnoses Incontinence in female R32 Urinary urgency R39.15 CPT Codes Post Residual Void - PVR CPT Code: 70301-Ggqd Void Residual by ultrasound ([id number]) Time Spent (min) 40
== END 2024-06-15 10:58 | disposition home or self-care (01) ==
LOC: HO.HUSH 10:01
PROVIDERS: PCP Internal Medicine; Visit Provider Nurse Practitioner Family
DX: R32 Unspecified urinary incontinence (principal); R39.15 Urgency of urination; Z13.9 Encounter for screening, unspecified
CPT/HCPCS: 99214

== ENCOUNTER → 2024-06-15 10:01 | Outpatient (BNVA) | payer OTHER, SELFPAY | PROVIDERS: PCP Internal Medicine; Visit Provider Nurse Practitioner Family | DX: R35.1 Nocturia (principal); R32 Unspecified urinary incontinence; R39.15 Urgency of urination; N30.10 Interstitial cystitis (chronic) without hematuria; N32.81 Overactive bladder | CPT/HCPCS: 51798; 81003 ==

== ENCOUNTER 2024-07-10 11:28 | Outpatient (REF) | payer OTHER, SELFPAY ==
--- NOTE | ~2024-07-10 | US_ITS ---
EXAMINATION: US RETROPERITONEAL COMPLETE (RENAL) CLINICAL INFORMATION: Urgency of urination. COMPARISON: None available. TECHNIQUE: Real-time imaging of the kidneys and bladder. FINDINGS: RIGHT KIDNEY: 11.3 x 4.3 x 5.8 cm (SAG x AP x TRV). The kidney is normal in size, contour, and echogenicity. Renal cortical thickness is normal. No hydronephrosis. Anechoic cyst mid pole measuring 0.9 x 0.8 x 1.2 cm. There is an echogenic stone versus calcification in upper pole measuring 0.4 x 0.4 x 0.3 cm. LEFT KIDNEY: 11.2 x 5.2 x 5.5 cm (SAG x AP x TRV). The kidney is normal in size, contour, and echogenicity. Renal cortical thickness is normal. No calculi or focal parenchymal lesions. No hydronephrosis. BLADDER: Well distended and normal. Bilateral ureteral jets are demonstrated. Prevoid bladder volume is 217 mL. Postvoid bladder volume is 11 mL. US/US retroperitoneal comp IMPRESSION: Simple cyst mid pole right kidney cortical calcification versus tiny stone upper pole right kidney. Unremarkable left kidney. Tiny post void residual bladder volume. Electronically signed by: Grayson Carter MD 07/18/2024 08:30 AM EST
== END 2024-07-10 11:29 | disposition home or self-care (01) ==
LOC: HO.HMGCX 11:28
PROVIDERS: PCP Internal Medicine; Visit Provider Nurse Practitioner Family
DX: R39.15 Urgency of urination (principal); R32 Unspecified urinary incontinence
CPT/HCPCS: 76770

== ENCOUNTER → 2024-07-10 11:30 | Outpatient (BNV) | payer OTHER, SELFPAY | PROVIDERS: PCP Internal Medicine; Visit Provider Radiology Diagnostic Radiology | DX: R39.15 Urgency of urination (principal) | CPT/HCPCS: 76770 ==

== ENCOUNTER 2024-07-26 10:00 | Outpatient (REF) | payer OTHER, SELFPAY | END 2024-07-26 10:01 | disposition home or self-care (01) | LOC: HO.LAB 10:00 | PROVIDERS: PCP Internal Medicine; Visit Provider Nurse Practitioner Family | DX: R39.15 Urgency of urination (principal); R32 Unspecified urinary incontinence; N28.1 Cyst of kidney, acquired; Z13.9 Encounter for screening, unspecified | CPT/HCPCS: 51798; 81003; 87086 ==

== ENCOUNTER 2024-07-26 10:00 | Outpatient (AMB) | payer OTHER, SELFPAY ==
--- NOTE | 2024-07-26 10:01 | A.OFFVIS_ITS ---
Intake Visit Reasons: 1 month follow up/ US(set) Intake Note: Patient is Present for Follow Up Urology Medication: Myrbetriq(Stopped due to medication causing her to become very dizzy) Antibiotic Allergies: Amoxicillin, Penicillin, Sulfa Blood Thinners: None Last PVR:0MLS Todays PVR: 0mls Analyst Programmer Required: No Accompanied by: Self / Same As Patient Allergies amoxicillin Allergy (Unknown, Verified 07/26/24 10:58) Unknown penicillin V Allergy (Unknown, Verified 07/26/24 10:58) Unknown Sulfa (Sulfonamide Antibiotics) Allergy (Unknown, Verified 07/26/24 10:58) Unknown Medication List - Last Reconciled 07/26/24 by TIEN Sky albuterol sulfate 90 mcg/actuation 2 puffs inhalation Q6H PRN chlorpheniramine maleate 4 mg PO .prn cholecalciferol (vitamin D3) 7,000 mcg PO DAILY HPI Comments Details: Darlene Harrington is a pleasant 69 year old female patient of Dr. Hinojosa. She has a past medical history of KARSTEN positive, autoimmune disease, asthma, arthralgia, vitamin-D deficiency, hyperlipidemia, urinary incontinence, occipital neuralgia and degenerative joint disease cervical. She presents to the office today for follow-up of her ongoing lower urinary tract symptoms. Of note, patient was seen approximately 1 month ago at which time oxybutynin was discontinued as patient had been reporting dizziness and she was started on Myrbetriq. In discussion with the patient today she reports having also stopped Myrbetriq as she had been experiencing dizziness as well as feeling dehydrated. She continues to wear Shavonne pads and is involved in bathroom planning. She discusses previously attending pelvic floor therapy through [facility] many years ago and did not find this helpful. We discussed at length potential causes of lower urinary tract symptoms patient is experiencing. She does have a previous history of 2 vaginal births. She discusses her son's ongoing medical issues. She otherwise denies dysuria, foul smelling urine, changes to urinary stream, flank pain, fever, and or chills. In office urinalysis results reviewed with the patient today. PVR 0 mL. Patient was enquiring organ prolapse. assessment performed in office today mild irritation to urethral noted. Upon insertion of speculum Grade 1- 2 prolapse noted. Recent retroperitoneal ultrasound results reviewed with the patient today. Bilateral kidneys with no hydronephrosis or masses. Anechoic cyst mid pole right kidney measuring 1.2 cm. Bladder is well distended and normal. Bladder jets are demonstrated. Pre void bladder volume is approximately 215 mL. Postvoid bladder volume is approximately 10 mL. We discussed at length further treatment options of lower urinary tract symptoms patient is experiencing as well as risks and benefits of these treatment options. During last office visit patient was referred to pelvic floor therapy she continues to await call for scheduling. Information provided for pelvic floor therapy at today's office visit. Will schedule for in office urodynamics as planned. She otherwise offers no other issues or concerns at this time. [facility] Medical History KARSTEN positive Autoimmune disease SOB (shortness of breath) Asthma Arthralgia Vitamin D deficiency Hyperlipemia Annual physical exam Urinary incontinence Occipital neuralgia DJD (degenerative joint disease), cervical Surgical History H/O colonoscopy No pertinent past surgical history Family History Father Heart problem Mother Cancer Sister Dementia Mental health disorder Brother Mental health disorder Sister Substance use disorder Social History Housing: House Patient Tobacco Use Status: Former Tobacco user e-Cigarette/Vaping Use: Never Used service: No Current occupational status: employed Cognitive needs: No Hearing needs: No Vision needs: Yes Review of Systems Const All systems reviewed & are unremarkable except as noted in HPI and below Physical Exam Const General: cooperative, healthy appearing, comfortable, no acute distress, well developed, alert and awake Nutritional Appearance: overweight Orientation/consciousness: patient oriented x3 Limitations: no limitations HEENT Head: Yes normal to inspection, Yes normocephalic and Yes atraumatic Ears: hearing grossly normal bilaterally Eyes General: appearance normal, both eyes and all related structures Neck Neck: Yes normal visual inspection and Yes trachea midline Chest Chest palpation & inspection: normal inspection of the chest Resp Effort & Inspection: normal respiratory effort and able to speak in complete sentences Cardio Rate: regular rate GI Inspection: Yes normal to inspection General: Yes no CVA tenderness Back/Spine/Pelvis Back: no CVA tenderness Skin General skin exam: no rashes or lesions noted Neuro General: patient oriented x3 Extrem General: Yes normal to inspection Psych Appearance: grossly normal and well kempt Mental Status: mental status grossly normal Speech and movement: Normal speech and movement present and Clear speech present Affect: normal affect Attitude: cooperative Thought process: Normal thought process present Thought content: Normal thought content present Insight: Fair insight present (Psych) Judgement: Fair judgement present (Psych) Office Procedures Post Void Residual Post Residual Void Post Void Residual (PVR): 0 84822-Mzzl Void Residual by ultrasound Results AMB Urinalysis, Automated UA Leukoctes 0 Diane/uL Last Edit by Saira Younger Sofia on 07/26/24 10:18 UA Nitrite Negative Last Edit by Saira Younger [facility] on 07/26/24 10:18 UA Urobilinogen 0.2 mg/dL Last Edit by Saira Younger [facility] on 07/26/24 10:1 8 UA Protein 0 mg/dL Last Edit by Saira Younger [facility] on 07/26/24 10:18 UA pH 6.0 Last Edit by Saira Younger [facility] on 07/26/24 10:18 UA Blood 10 Ezio/uL Last Edit by Saira Younger [facility] on 07/26/24 10:18 UA Specific [place] 1.020 Last Edit by Saira Younger [facility] on 07/26/24 10: 18 UA Ketone Negative Last Edit by Saira Younger [facility] on 07/26/24 10:18 UA Bilirubin 0 mg/dL Last Edit by Saira Younger [facility] on 07/26/24 10:18 UA Glucose 0 mg/dL Last Edit by Saira Younger [facility] on 07/26/24 10:18 Results Reviewed Results Reviewed: Laboratory Last Values Urine pH (Auto) 6.0 07/26/24 10:07 Specific [place] (Auto) 1.020 07/26/24 10:07 Urine Protein (Auto) 0 mg/dL 07/26/24 10:07 Glucose (UA)(Auto) 0 mg/dL 07/26/24 10:07 Urine Ketones (Auto) Negative 07/26/24 10:07 Urine Blood (Auto) 10 Ezio/uL 07/26/24 10:07 Urine Nitrite (Auto) Negative 07/26/24 10:07 Urine Bilirubin (Auto) 0 mg/dL 07/26/24 10:07 Urine Urobilinogen (Auto) 0.2 mg/dL 07/26/24 10:07 Leukocyte Esterase (Auto) 0 Diane/uL 07/26/24 10:07 Date of Service: 07/10/24 EXAMINATION: US RETROPERITONEAL COMPLETE (RENAL) CLINICAL INFORMATION: FINDINGS: RIGHT KIDNEY: 11.3 x 4.3 x 5.8 cm (SAG x AP x TRV). The kidney is normal in size, contour, and echogenicity. Renal cortical thickness is normal. No hydronephrosis. Anechoic cyst mid pole measuring 0.9 x 0.8 x 1.2 cm. There is an echogenic stone versus calcification in upper pole measuring 0.4 x 0.4 x 0.3 cm. LEFT KIDNEY: 11.2 x 5.2 x 5.5 cm (SAG x AP x TRV). The kidney is normal in size, contour, and echogenicity. Renal cortical thickness is normal. No calculi or focal parenchymal lesions. No hydronephrosis. BLADDER: Well distended and normal. Bilateral ureteral jets are demonstrated. Prevoid bladder volume is 217 mL. Postvoid bladder volume is 11 mL. IMPRESSION: Simple cyst mid pole right kidney cortical calcification versus tiny stone upper pole right kidney. Unremarkable left kidney. Tiny post void residual bladder volume. Assessment & Plan Assessment & Plan (1) Urinary urgency: Code(s): R39.15 - Urgency of urination Category: Medical (2) Incontinence in female: Comment: Chronic urinary incontinence Code(s): R32 - Unspecified urinary incontinence Category: Medical (3) Renal cyst: Code(s): N28.1 - Cyst of kidney, acquired Category: Medical Plan In office urinalysis results reviewed the patient today; as noted above. PVR 0 mL. Stop Myrbetriq as discussed. Recent retroperitoneal ultrasound results reviewed with the patient today; as noted above. We discussed at length potential causes lower urinary tract symptoms patient was experiencing as well as further treatment options and risks and benefits of these treatment options. Pelvic floor therapy referral remains pending; information provided. Will schedule for in office urodynamics for further asssement evaluation. Follow-up per doctor's orders; or sooner with any issues, concerns, and or questions. Orders: Orders Urine Culture 07/26/24 R39.15 - Urgency of urination AMB Urinalysis Automated 07/26/24 Z13.9 - Encounter for screening, unspecified AMB Post Void Residual by ultrasound 07/26/24 R39.15 - Urgency of urination Medications: Discontinued mirabegron ER (Myrbetriq) Discontinued Reason: Doctor's Order 25 mg PO DAILY 30 days 30 tabs 3RF N30.10 - Interstitial cystitis (chronic) without hematuria, N32.81 - Overactive bladder, R35.1 - Nocturia, R39.15 - Urgency of urination Patient Instructions: The patient had an opportunity to ask questions regarding the treatment plan. All questions were answered. Physical exam, labs, and imaging were discussed and reviewed in detail. As well as risks, benefits, and discussion of treatment choices. No major barriers to understanding were identified. The patient expressed understanding and agreement with the above treatment plan. The patient was made aware they should contact our office by phone for worsening of their current condition, the appearance of new symptoms, or with any questions or concerns. Compliance is encouraged with any medications and follow up testing that is ordered. It is a privilege to be allowed the opportunity to participate in? your urological care.? Again, if you have any questions or concerns If you have any questions or concerns please do not hesitate to contact me. The office is [phone]. This note is constructed using voice recognition software. While every effort has been made to ensure accuracy stores despatch hand errors may have been included. Yours sincerely, TIEN Sky Coding Level of Care Code Est Pt Level 4 (50884) Diagnoses Urinary urgency R39.15 Incontinence in female R32 Renal cyst N28.1 CPT Codes Post Residual Void - PVR CPT Code: 85545-Ejoq Void Residual by ultrasound ([id number]) Time Spent (min) 35
== END 2024-07-26 10:57 | disposition home or self-care (01) ==
LOC: HO.HUSH 10:00
PROVIDERS: PCP Internal Medicine; Visit Provider Nurse Practitioner Family
DX: R39.15 Urgency of urination (principal); R32 Unspecified urinary incontinence; N28.1 Cyst of kidney, acquired
CPT/HCPCS: 99214

== ENCOUNTER 2024-08-23 13:52 | Outpatient (REF) | payer OTHER, SELFPAY ==
[2024-08-23 16:17] LABS: Appearance Urine Turbid; Color Urine Yellow; Glucose Urine UA Negative (Negative); Leukocyte Esterase Urine Negative (Negative); Nitrite Urine Negative (Negative); PH 7.5 (5.0-9.0); Urine Blood Negative (Negative); Urine Ketones Negative (Negative); Urine Protein Negative (Neg-Trace)
[2024-08-23 16:22] LABS: Bacteria Urine None Seen (None Seen); Hyaline Casts Urine 0-2 /LPF (0-2); RBC Urine 0-2 /HPF (0-2); Squamous Epithelial Cell Urine 0-2 /HPF (0-2); WBC Urine 0-5 /HPF (0-5)
== END 2024-08-23 13:53 | disposition home or self-care (01) ==
LOC: HO.HMGCLDS 13:52
PROVIDERS: PCP Internal Medicine; Visit Provider Urology
DX: R39.15 Urgency of urination (principal); R32 Unspecified urinary incontinence
CPT/HCPCS: 81001; 87086

== ENCOUNTER 2024-08-25 08:06 | Outpatient (AMB) | payer OTHER, SELFPAY ==
--- NOTE | 2024-08-25 08:26 | MHC.OFFVIS ---
Intake Visit Reasons: urodynemics Intake Note: Patient is present for Urodynamic Procedure Urology Med: Estradiol,Myrbetriq Antibiotic Allergy: Amoxicillin, Penicillin, Sulfa Blood Thinner: None Interior Design Consultant Required: No Accompanied by: Self / Same As Patient Allergies amoxicillin Allergy (Unknown, Verified 08/25/24 08:32) Unknown penicillin V Allergy (Unknown, Verified 08/25/24 08:32) Unknown Sulfa (Sulfonamide Antibiotics) Allergy (Unknown, Verified 08/25/24 08:32) Unknown HPI Comments Details: Darlene is a 69 year old female who is here for urodynamics. The patient has complaints of urinary incontinence. She has symptoms of mixed urinary incontinence with major component to be urge related. Interpretation: During the filling phase there was normal sensation, sensory urgency was noted, the patient felt that she was at capacity at 344 mL, and voided 370 mL. Leakage was not observed during cough or valsalva stress. Findings consistent with less than average functional bladder capacity, detrusor overactivity. EMG- Appropriate changes in the waveforms were noted through out the study. Discussed OAB care pathway, including fluid management, dietary modifications, including caffeine intake. Bladder control strategies, including pelvic floor exercises. Discessed that urinary leakage can be related to pelvic floor muscles weakness and/or bladder spasms. Treatment options discussed for OAB included anticholinergics/antimuscarinics, neuromodulation, bladder botox injection. The patient failed oxybutynin due to SE's dizziness. She has not tried the myrbetriq as yet. She is prescribed Myrbetriq 25 mg daily. I have discussed that after 7 days if still has strong urge symptoms to increased to bid to max dose of 50 mg daily. FU with Naeem in 6- 8 weeks. 35 minutes spent in review of records pertaining to this visit and including [id number] discussion with the patient and documentation of this visit. [facility] Medical History KARSTEN positive Autoimmune disease SOB (shortness of breath) Asthma Arthralgia Vitamin D deficiency Hyperlipemia Annual physical exam Urinary incontinence Occipital neuralgia DJD (degenerative joint disease), cervical Surgical History H/O colonoscopy No pertinent past surgical history Family History Father Heart problem Mother Cancer Sister Dementia Mental health disorder Brother Mental health disorder Sister Substance use disorder Social History Housing: House Patient Tobacco Use Status: Former Tobacco user e-Cigarette/Vaping Use: Never Used service: No Current occupational status: employed Cognitive needs: No Hearing needs: No Vision needs: Yes Review of Systems Const All systems reviewed & are unremarkable except as noted in HPI and below Reports no additional complaints Eyes Reports no additional complaints ENT Reports no additional complaints Card Reports no additional complaints Resp Reports no additional complaints GI Reports no additional complaints Reports as per HPI Musc Reports no additional complaints Skin/Breast Reports system reviewed and no additional complaints, except as documented Neuro Reports no additional complaints Psych Reports no additional complaints Endo Reports no additional complaints Jv/Lymph Reports no additional complaints Aller/Immun Reports no additional complaints Office Procedures Urodynamic Studies Consent Discussed risk and benefit or proposed procedure with the patient. Information consent for procedure given to the patient. Discussed technical aspects, risks, benefits and alternatives in full. Addressed all of the patient's questions and concerns regarding the procedure. The patient demonstrated knowledge and understanding. They wish to proceed with this procedure. Preparation The patient was prepped in the usual manner. A high man was present and in the room. Genitalia was prepped with betadine solution in a sterile manner. Procedure Complex Uroflow Complex uroflow performed by: Leigh De Maximum urinary flow rate (mL/second): 1.6 Voiding time (seconds): 1.4 Voided volume (mL): minimal urine collected in device Residual urine (mL): --- Cystometrogram Vaginal/rectal catheter type: vaginal First sensation at (mL): 17 mL First desire at (mL): 127 mL Strong desire to void occured at (mL): 242 mL Strong desire detrussor pressure (cm H2O): 4.9 Maximum fill (mL): 344 mL Voided with max detrussor pressure of (cm H2O): 31 Maximum flow rate (mL/second): 18 mL/s Prep: The patient was prepped in the usual manner. A high man was present and in the room. Genitalia was prepped with betadine solution in a sterile manner. 14855-Grlrwerqhnftgi w/ SENIOR VALIDATION ENGINEER 00401-Cocwtwp-Zfrkizabozks 18628-Rnbb/Urinary Muscle Study 75024-Trnei-Kllqhmyxg Pressure Test Procedure code (CPT) selection complete Office Meds nitrofurantoin monohydrate/macrocrystals 100 mg capsule Performing Provider: Leigh De MD Performing Location: [facility] [place] [facility] Document[facility] (not given) by: Finesse Lauren LPN on 08/25/24 08:52 Reason Not Given: Patient Refused Comments: Pt declined nitrofurantoin Assessment & Plan Assessment & Plan (1) Urinary urgency: Code(s): R39.15 - Urgency of urination Category: Medical (2) Detrusor overactivity: Code(s): N32.81 - Overactive bladder Category: Medical Plan Treatment options discussed for OAB included anticholinergics/antimuscarinics, neuromodulation, bladder botox injection. The patient failed oxybutynin due to SE's dizziness. She has not tried the myrbetriq as yet. She is prescribed Myrbetriq 25 mg daily. I have discussed that after 7 days if still has strong urge symptoms to increased to bid to max dose of 50 mg daily. FU with Naeem in 6- 8 weeks. Orders: Orders AMB Urodynamics Studies Today R32 - Unspecified urinary incontinence, R39.15 - Urgency of urination Patient Instructions: The patient had an opportunity to ask questions regarding treatment plan. The patient expressed understanding and agreement with the above treatment plan. The patient is aware they should contact our office by phone for worsening of their current condition or the appearance of new symptoms. Compliance is encouraged with any medications and followup testing that is ordered. It is a privilege to be allowed the opportunity to participate in the urologic care of your patient. If you have any questions or concerns regarding treatment for the above conditions please do not hesitate to contact me. The office telephone contact is [phone]. This note is constructed in part using voice recognition software. While every effort has been made to ensure accuracy geriatric physical therapist errors may have been included. Yours sincerely, Leigh De MD Coding Level of Care Code Est Pt Level 4 (79437) Diagnoses Urinary urgency R39.15 Detrusor overactivity N32.81 CPT Codes Urodynamic Studies - CPT: 94779-Xlzooepxpzsrki w/ SENIOR VALIDATION ENGINEER ([id number]) Urodynamic Studies - CPT: 62004-Ipcdscj-Smztyncenwzj ([id number]) Urodynamic Studies - CPT: 46173-Qwle/Urinary Muscle Study ([id number]) Urodynamic Studies - CPT: 91017-Ssomm-Yzhzskwzw Pressure Test ([id number])
== END 2024-08-25 10:10 | disposition home or self-care (01) ==
PROVIDERS: PCP Internal Medicine; Visit Provider Urology
DX: R39.15 Urgency of urination (principal); R32 Unspecified urinary incontinence; N32.81 Overactive bladder
CPT/HCPCS: 51728; 51741; 51784; 51797; 99214

== ENCOUNTER → 2024-08-25 08:06 | Outpatient (BNVA) | payer OTHER, SELFPAY | PROVIDERS: PCP Internal Medicine; Visit Provider Urology | DX: N32.81 Overactive bladder (principal); R39.15 Urgency of urination; R32 Unspecified urinary incontinence | CPT/HCPCS: 51728; 51741; 51784; 51797 ==

== ENCOUNTER 2024-10-18 12:25 | Outpatient (AMB) | payer OTHER, SELFPAY ==
--- NOTE | 2024-10-18 12:32 | MHC.OFFVIS ---
Intake Visit Reasons: 8w follow up Intake Note: Patient is Present for Follow Up Urology Medication: None Antibiotic Allergies: Amoxicillin, Penicillin, Sulfa Blood Thinners: None Last PVR:0MLS Todays PVR: Utility Worker Film Processing Required: No Allergies amoxicillin Allergy (Unknown, Verified 10/18/24 13:17) Unknown penicillin V Allergy (Unknown, Verified 10/18/24 13:17) Unknown Sulfa (Sulfonamide Antibiotics) Allergy (Unknown, Verified 10/18/24 13:17) Unknown Medication List - Last Reconciled 10/18/24 by TIEN Sky albuterol sulfate 90 mcg/actuation 2 puffs inhalation Q6H PRN chlorpheniramine maleate 4 mg PO .prn cholecalciferol (vitamin D3) 7,000 mcg PO DAILY estradiol 0.01%(0.1mg/gram) pea-sized to urethra 3 times a week 30 days Do you need a note to return to daycare/school/sports/work: No HPI Comments Details: Darlene Harrington is a pleasant 69 year old female patient of Dr. Hinojosa. She has a past medical history of KARSTEN positive, autoimmune disease, asthma, arthralgia, vitamin-D deficiency, hyperlipidemia, urinary incontinence, occipital neuralgia and degenerative joint disease cervical. She presents to the office today for follow-up of her ongoing lower urinary tract symptoms. Of note, during last office visit 09/05 patient underwent an office urodynamics with Dr. De which noted: Interpretation: During the filling phase there was normal sensation, sensory urgency was noted, the patient felt that she was at capacity at 344 mL, and voided 370 mL. Leakage was not observed during cough or valsalva stress. Findings consistent with less than average functional bladder capacity, detrusor overactivity. EMG- Appropriate changes in the waveforms were noted through out the study. Discussion regarding OAB care pathway, including fluid management, dietary modifications, including caffeine intake. Bladder control strategies, including pelvic floor exercises. Discessed that urinary leakage can be related to pelvic floor muscles weakness and/or bladder spasms. Treatment options discussed for OAB included anticholinergics/antimuscarinics, neuromodulation, bladder botox injection. At which time plan was to initiate pelvic floor therapy and trial Myrbetriq. In discussion with the patient today she reports given her side effects to oxybutynin with dizziness she was reluctant to trial Myrbetriq and is awaiting initiation of pelvic floor therapy within the next few weeks. In office urinalysis results reviewed with the patient today. We again discussed further treatment options and risks and benefits of these treatment options. She discusses having had pelvic floor therapy through [facility] many years ago and believe this was somewhat helpful at a time. She continues to experience mixed urinary incontinence with most bothersome urinary symptom to be urge. Previous workup has included a retroperitoneal ultrasound noting bilateral kidneys with no hydronephrosis or masses. Anechoic cyst mid pole right kidney measuring 1.2 cm. Bladder is well distended and normal. Bladder jets are demonstrated. Pre void bladder volume is approximately 215 mL. Postvoid bladder volume is approximately 10 mL. We discussed at length further treatment options of lower urinary tract symptoms patient is experiencing as well as risks and benefits of these treatment options. She otherwise offers no other issues or concerns at this time. [facility] Medical History KARSTEN positive Autoimmune disease SOB (shortness of breath) Asthma Arthralgia Vitamin D deficiency Hyperlipemia Annual physical exam Urinary incontinence Occipital neuralgia DJD (degenerative joint disease), cervical Surgical History H/O colonoscopy No pertinent past surgical history Family History Father Heart problem Mother Cancer Sister Dementia Mental health disorder Brother Mental health disorder Sister Substance use disorder Social History Housing: House Patient Tobacco Use Status: Former Tobacco user e-Cigarette/Vaping Use: Never Used service: No Current occupational status: employed Cognitive needs: No Hearing needs: No Vision needs: Yes Review of Systems Const All systems reviewed & are unremarkable except as noted in HPI and below Physical Exam Const General: cooperative, healthy appearing, comfortable, no acute distress, well developed, alert and awake Nutritional Appearance: overweight Orientation/consciousness: patient oriented x3 Limitations: no limitations HEENT Head: Yes normal to inspection, Yes normocephalic and Yes atraumatic Ears: hearing grossly normal bilaterally Eyes General: appearance normal, both eyes and all related structures Neck Neck: Yes normal visual inspection and Yes trachea midline Chest Chest palpation & inspection: normal inspection of the chest Resp Effort & Inspection: normal respiratory effort and able to speak in complete sentences Cardio Rate: regular rate GI Inspection: Yes normal to inspection General: Yes no CVA tenderness Back/Spine/Pelvis Back: no CVA tenderness Skin General skin exam: no rashes or lesions noted Neuro General: patient oriented x3 Extrem General: Yes normal to inspection Psych Appearance: grossly normal and well kempt Mental Status: mental status grossly normal Speech and movement: Normal speech and movement present and Clear speech present Affect: normal affect Attitude: cooperative Thought process: Normal thought process present Thought content: Normal thought content present Insight: Fair insight present (Psych) Judgement: Fair judgement present (Psych) Assessment & Plan Assessment & Plan (1) Detrusor overactivity: Code(s): N32.81 - Overactive bladder Category: Medical (2) Urinary urgency: Code(s): R39.15 - Urgency of urination Category: Medical (3) Incontinence in female: Comment: Chronic urinary incontinence Code(s): R32 - Unspecified urinary incontinence Category: Medical Plan In office urinalysis results reviewed with the patient today; as noted above. Patient is awaiting initiation of pelvic floor therapy within the next few weeks. We discussed potential causes of lower urinary tract symptoms patient was experiencing as well as further treatment options and risks and benefits of these treatment options. Will follow-up in 3 months upon completion of pelvic floor therapy for further assessment evaluation; or sooner with any issues, concerns, and or questions. Patient Instructions: The patient had an opportunity to ask questions regarding the treatment plan. All questions were answered. Physical exam, labs, and imaging were discussed and reviewed in detail. As well as risks, benefits, and discussion of treatment choices. No major barriers to understanding were identified. The patient expressed understanding and agreement with the above treatment plan. The patient was made aware they should contact our office by phone for worsening of their current condition, the appearance of new symptoms, or with any questions or concerns. Compliance is encouraged with any medications and follow up testing that is ordered. It is a privilege to be allowed the opportunity to participate in? your urological care.? Again, if you have any questions or concerns If you have any questions or concerns please do not hesitate to contact me. The office is [phone]. This note is constructed using voice recognition software. While every effort has been made to ensure accuracy magazine journalist errors may have been included. Yours sincerely, TIEN Sky Coding Level of Care Code Est Pt Level 3 (82988) Complex EM visit Add On G2211 Diagnoses Detrusor overactivity N32.81 Urinary urgency R39.15 Incontinence in female R32
== END 2024-10-18 13:00 | disposition home or self-care (01) ==
LOC: HO.HUSH 12:25
PROVIDERS: PCP Internal Medicine; Visit Provider Nurse Practitioner Family
DX: N32.81 Overactive bladder (principal); R39.15 Urgency of urination; R32 Unspecified urinary incontinence
CPT/HCPCS: 99213

== ENCOUNTER → 2024-10-18 12:25 | Outpatient (BNVA) | payer OTHER, SELFPAY | PROVIDERS: PCP Internal Medicine; Visit Provider Nurse Practitioner Family ==

== ENCOUNTER 2025-01-17 08:57 | Outpatient (AMB) | payer OTHER, SELFPAY ==
--- NOTE | 2025-01-17 09:11 | MHC.OFFVIS ---
Intake Visit Reasons: 3M follow up/ PVR Intake Note: Patient presents today for follow up on: OAB, urgency, and incontinence Urology Medication: Estrace Cream(not currently using) Antibiotic Allergies: Amoxicillin, Penicillin, Sulfa Blood Thinners: None PVR: 0ml's Finisher Accordion Required: No Accompanied by: Self / Same As Patient Allergies amoxicillin Allergy (Unknown, Verified 01/17/25 15:29) Unknown penicillin V Allergy (Unknown, Verified 01/17/25 15:29) Unknown Sulfa (Sulfonamide Antibiotics) Allergy (Unknown, Verified 01/17/25 15:29) Unknown Medication List - Last Reconciled 01/17/25 by TIEN Sky albuterol sulfate 90 mcg/actuation 2 puffs inhalation Q6H PRN chlorpheniramine maleate 4 mg PO .prn Do you need a note to return to daycare/school/sports/work: No HPI Comments Details: Darlene Harrington is a pleasant 69 year old female patient of Dr. Hinojosa. She has a past medical history of KARSTEN positive, autoimmune disease, asthma, arthralgia, vitamin-D deficiency, hyperlipidemia, urinary incontinence, occipital neuralgia and degenerative joint disease cervical. She presents to the office today for follow-up of her ongoing lower urinary tract symptoms. Of note, during last office visit 09/05 patient underwent an office urodynamics with Dr. De which noted: Interpretation: During the filling phase there was normal sensation, sensory urgency was noted, the patient felt that she was at capacity at 344 mL, and voided 370 mL. Leakage was not observed during cough or valsalva stress. Findings consistent with less than average functional bladder capacity, detrusor overactivity. EMG- Appropriate changes in the waveforms were noted through out the study. Discussion regarding OAB care pathway, including fluid management, dietary modifications, including caffeine intake. Bladder control strategies, including pelvic floor exercises. Discessed that urinary leakage can be related to pelvic floor muscles weakness and/or bladder spasms. Treatment options discussed for OAB included anticholinergics/antimuscarinics, neuromodulation, bladder botox injection. In discussion with the patient today she reports having initiated pelvic floor therapy and feels this has been helpful. She discusses feeling she is hopeful symptoms will improve as she has noted a benefit however does feel she continues with lower urinary tract symptoms. She reports compliance with daily exercises as recommended by pelvic floor therapist. She would like to continue with pelvic floor therapy at this time and further assess upon completion of therapy. She otherwise denies any bothersome urinary issues. She denies hematuria, dysuria, foul smelling urine, changes to urinary stream, flank pain, fever, and or chills. She had previously trialed oxybutynin however experience dizziness. She discusses her reluctancy and taking medications and would like to continue with therapy. In office urinalysis results reviewed with the patient today. PVR 0 mL. Previous workup has included a retroperitoneal ultrasound 07/04 noting bilateral kidneys with no hydronephrosis or masses. Anechoic cyst mid pole right kidney measuring 1.2 cm. Bladder is well distended and normal. Bladder jets are demonstrated. Pre void bladder volume is approximately 215 mL. Postvoid bladder volume is approximately 10 mL. We discussed at length further treatment options of lower urinary tract symptoms patient is experiencing as well as risks and benefits of these treatment options. She otherwise offers no other issues or concerns at this time. [facility] Medical History KARSTEN positive Autoimmune disease SOB (shortness of breath) Asthma Arthralgia Vitamin D deficiency Hyperlipemia Annual physical exam Urinary incontinence Occipital neuralgia DJD (degenerative joint disease), cervical Surgical History H/O colonoscopy No pertinent past surgical history Family History Father Heart problem Mother Cancer Sister Dementia Mental health disorder Brother Mental health disorder Sister Substance use disorder Social History Housing: House Patient Tobacco Use Status: Former Tobacco user e-Cigarette/Vaping Use: Never Used service: No Current occupational status: employed Cognitive needs: No Hearing needs: No Vision needs: Yes Review of Systems Const All systems reviewed & are unremarkable except as noted in HPI and below Physical Exam Const General: cooperative, healthy appearing, comfortable, no acute distress, well developed, alert and awake Nutritional Appearance: overweight Orientation/consciousness: patient oriented x3 Limitations: no limitations HEENT Head: Yes normal to inspection, Yes normocephalic and Yes atraumatic Ears: hearing grossly normal bilaterally Eyes General: appearance normal, both eyes and all related structures Neck Neck: Yes normal visual inspection and Yes trachea midline Chest Chest palpation & inspection: normal inspection of the chest Resp Effort & Inspection: normal respiratory effort and able to speak in complete sentences Cardio Rate: regular rate GI Inspection: Yes normal to inspection General: Yes no CVA tenderness Back/Spine/Pelvis Back: no CVA tenderness Skin General skin exam: no rashes or lesions noted Neuro General: patient oriented x3 Extrem General: Yes normal to inspection Psych Appearance: grossly normal and well kempt Mental Status: mental status grossly normal Speech and movement: Normal speech and movement present and Clear speech present Affect: normal affect Attitude: cooperative Thought process: Normal thought process present Thought content: Normal thought content present Insight: Fair insight present (Psych) Judgement: Fair judgement present (Psych) Office Procedures Post Void Residual Post Residual Void Post Void Residual (PVR): 0 [id number] Void Residual by ultrasound Results AMB Urinalysis, Automated UA Leukoctes 0 Diane/uL Last Edit by Haleigh Gaines [facility] on 01/17/25 09:26 UA Nitrite Last Edit by Haleigh Gaines [facility] on 01/17/25 09:26 UA Urobilinogen 0.2 mg/dL Last Edit by Haleigh Gaines [facility] on 01/17/25 09:26 UA Protein 0 mg/dL Last Edit by Haleigh Gaines [facility] on 01/17/25 09:26 UA pH 7.0 Last Edit by Haleigh Gaines [facility] on 01/17/25 09:26 UA Blood 10 Ezio/uL Last Edit by Haleigh Gaines [facility] on 01/17/25 09:26 UA Specific [place] 1.015 Last Edit by Haleigh Gaines [facility] on 01/17/25 09:26 UA Ketone Last Edit by Haleigh Gaines [facility] on 01/17/25 09:26 UA Bilirubin 0 mg/dL Last Edit by Haleigh Gaines [facility] on 01/17/25 09:26 UA Glucose 0 mg/dL Last Edit by Haleigh Gaines [facility] on 01/17/25 09:26 Results Reviewed Results Reviewed: Laboratory Last Values Urine pH (Auto) 7.0 01/17/25 09:25 Specific [place] (Auto) 1.015 01/17/25 09:25 Urine Protein (Auto) 0 mg/dL 01/17/25 09:25 Glucose (UA)(Auto) 0 mg/dL 01/17/25 09:25 Urine Blood (Auto) 10 Ezio/uL 01/17/25 09:25 Urine Bilirubin (Auto) 0 mg/dL 01/17/25 09:25 Urine Urobilinogen (Auto) 0.2 mg/dL 01/17/25 09:25 Leukocyte Esterase (Auto) 0 Diane/uL 01/17/25 09:25 Assessment & Plan Assessment & Plan (1) Detrusor overactivity: Code(s): N32.81 - Overactive bladder Category: Medical (2) Urinary urgency: Code(s): R39.15 - Urgency of urination Category: Medical (3) Incontinence in female: Comment: Chronic urinary incontinence Code(s): R32 - Unspecified urinary incontinence Category: Medical Plan In office urinalysis results reviewed with the patient today; as noted above. PVR 0 mL. Continue pelvic floor therapy as planned. We discussed potential causes of lower urinary tract symptoms patient was experiencing as well as further treatment options and risks and benefits of these treatment options. Will follow-up in 3 months upon completion of pelvic floor therapy for further assessment evaluation; or sooner with any issues, concerns, and or questions. Orders: Orders AMB Urinalysis Automated Today Z13.9 - Encounter for screening, unspecified AMB Post Void Residual by ultrasound Today R39.15 - Urgency of urination Urine Cytology Today R31.29 - Other microscopic hematuria Patient Instructions: The patient had an opportunity to ask questions regarding the treatment plan. All questions were answered. Physical exam, labs, and imaging were discussed and reviewed in detail. As well as risks, benefits, and discussion of treatment choices. No major barriers to understanding were identified. The patient expressed understanding and agreement with the above treatment plan. The patient was made aware they should contact our office by phone for worsening of their current condition, the appearance of new symptoms, or with any questions or concerns. Compliance is encouraged with any medications and follow up testing that is ordered. It is a privilege to be allowed the opportunity to participate in? your urological care.? Again, if you have any questions or concerns If you have any questions or concerns please do not hesitate to contact me. The office is [phone]. This note is constructed using voice recognition software. While every effort has been made to ensure accuracy computer sciences professor errors may have been included. Yours sincerely, SARINA Sky-WAYNE Coding Level of Care Code Est Pt Level 3 (28251) Complex EM visit Add On G2211 Diagnoses Detrusor overactivity N32.81 Urinary urgency R39.15 Incontinence in female R32 CPT Codes Post Residual Void - PVR CPT Code: 54348-Irrb Void Residual by ultrasound ([id number])
== END 2025-01-17 09:51 | disposition home or self-care (01) ==
LOC: HO.HUSH 08:58
PROVIDERS: PCP Internal Medicine; Visit Provider Nurse Practitioner Family
DX: N32.81 Overactive bladder (principal); R39.15 Urgency of urination; R32 Unspecified urinary incontinence; Z13.9 Encounter for screening, unspecified
CPT/HCPCS: 99213

== ENCOUNTER 2025-01-17 08:57 | Outpatient (REF) | payer OTHER, SELFPAY | END 2025-01-17 08:58 | disposition home or self-care (01) | LOC: HO.LNP 08:57 | PROVIDERS: PCP Internal Medicine; Visit Provider Nurse Practitioner Family | DX: N32.81 Overactive bladder (principal); R39.15 Urgency of urination; R32 Unspecified urinary incontinence; R31.29 Other microscopic hematuria | CPT/HCPCS: 51798; 81003; 88112 ==

== ENCOUNTER 2025-01-31 13:11 | Outpatient (RCR) | payer OTHER, SELFPAY ==
--- NOTE | 2024-11-22 14:24 | MHC.PT.EP ---
[facility] [place] Office [place] [facility] [place] [facility] [address] Venkat Duncan [address] [phone] F: [phone] F: [phone] F: [phone] F: [phone] Physical Therapy Plan of Care Date of Evaluation: 11/22/24 Date of Surgery: NA Diagnosis: Urgency of urination Unspecified urinary incontinence Assessment: Darlene Fuentes) is a 69 year old female who is referred to PT for urinary urgency, and urge incontinence . She reports of having symptoms of urinary urgency and frequency for 25 years. She was managing her symptoms from the guidelines written on a book named from Fat[employer] to fantastic . However her symptoms got worse 3 years post menopause. She PFPT for a bit after. Her symptoms have recently gotten worse. She reports of having urinary urgency, frequency, SMITHA, UUI, FI and pain with penetration due to vaginal dryness. Unable to perform transvaginal exam, ano-rectal exam and lumbar screen due to time constraints. She lives with her and is independent with all ADLS. She enjoys biking in the gym 2/week and playing pickle ball 3/week. She would benefit from skilled PT to address the aforementioned impairments and improve tolerance to functional activities. Frequency and Duration: The patient will be seen 1/week for 10 weeks Short Term Goals: 1. Transvaginal exam and ano rectal exam will be done in 2 weeks 2. Pt will be able to state atleast 3 urge suppression techniques in 3 weeks 3. Pt will be able void every 2 hours during the day and wake up no more than 1 at night in 4 weeks Marble Worker Goals: 1. Pt will deny having any UUI in 5 weeks 2. Pt will deny having SMITHA in 6 weeks 3. Pt will deny having FI in 8 weeks 4. Pt will report of having pain no more than 2/10 with sexual intercourse in 10 weeks Treatment Plan: Modalities to reduce pain, spasms and effusion. Manual therapy to restore motion and function. Therapeutic exercise to improve strength and flexibility. Neuromuscular re-education for posture and balance. Therapeutic activities to return to functional activities of daily living. Electronically signed by: Please sign and return to therapist. Thank you for your referral.
--- NOTE | 2025-02-14 14:21 | MHC.PT.DC ---
[facility] [place] Office [place] Office [place] Office [address] Venkat Duncan [address] [phone] F: [phone] F: [phone] F: [phone] F: [phone] Physical Therapy Discharge Report Diagnosis: Urgency of urination Unspecified urinary incontinence Date of Surgery: NA Date of Evaluation: 11/22/24 Date of Discharge: 02/14/25 Treatments to Date: 7 Cancellations to Date: 0 No Shows to Date: 0 Discharge Status: Independent with HEP Recommend MD Follow-up Discharge Summary: Darlene arrived stating she feels she was worse earlier this week. She stated that she was extremely stressed and she had 1 episode of FI and UUI. She stated that she has not been sleeping well. She has a 27 year old son who is disabled with mental health issues and dependent and this is causing her to be very stressed. 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 Her currently family situation is stressing her out and this is limiting her progress to achieve all her goals. Anatomically pelvic floor is WFL and she is independent with all her HEP as well. It appears that Darlene needs more management of her house situation and family situation in order for her to make a full recovery. Due to this she is being d/c from PT with education and advise to return to PT after improvement of her current family situation. She was in agreement with the plan. I reviewed all her exercises with her today. Electronically signed by: Monik Light, PT DPT Please sign and return to therapist. Thank you for your referral.
== END 2025-02-14 14:21 | disposition home or self-care (01) ==
LOC: HO.PT 13:11
PROVIDERS: PCP Internal Medicine; Visit Provider Nurse Practitioner Family
DX: R39.15 Urgency of urination (principal); R32 Unspecified urinary incontinence
CPT/HCPCS: 97112; 97140; 97162; 97535

== ENCOUNTER 2025-04-17 11:50 | Outpatient (AMB) | payer OTHER, SELFPAY ==
--- NOTE | 2025-04-17 11:54 | MHC.OFFVIS ---
Intake Visit Reasons: 3m follow up Intake Note: Patient is present for 3M F/U Urology Medication:NONE Antibiotic Allergy:AMOXICILLIN, PENICILLIN, SULFA Blood Thinner:NONE Sample Prep Technician Required: No Allergies amoxicillin Allergy (Unknown, Verified 04/17/25 14:33) Unknown penicillin V Allergy (Unknown, Verified 04/17/25 14:33) Unknown Sulfa (Sulfonamide Antibiotics) Allergy (Unknown, Verified 04/17/25 14:33) Unknown Medication List - Last Reconciled 04/17/25 by MONIK Sky albuterol sulfate 90 mcg/actuation 2 puffs inhalation Q6H PRN solifenacin (Vesicare) 5 mg PO DAILY 30 days HPI Comments Details: Darlene Harrington is a pleasant 69 year old female patient of Dr. Hinojosa. She has a past medical history of KARSTEN positive, autoimmune disease, asthma, arthralgia, vitamin-D deficiency, hyperlipidemia, urinary incontinence, occipital neuralgia and degenerative joint disease cervical. She presents to the office today for follow-up of her ongoing lower urinary tract symptoms. Of note, patient underwent an office urodynamics with Dr. Marques Evans 09/05 which noted: Interpretation: During the filling phase there was normal sensation, sensory urgency was noted, the patient felt that she was at capacity at 344 mL, and voided 370 mL. Leakage was not observed during cough or valsalva stress. Findings consistent with less than average functional bladder capacity, detrusor overactivity. EMG- Appropriate changes in the waveforms were noted through out the study. Discussion regarding OAB care pathway, including fluid management, dietary modifications, including caffeine intake. Bladder control strategies, including pelvic floor exercises were discussed. Discussed that urinary leakage can be related to pelvic floor muscles weakness and/or bladder spasms. Treatment options discussed for OAB included anticholinergics/antimuscarinics, neuromodulation, bladder botox injection. In discussion with the patient today she reports having completed pelvic floor therapy and initially felt symptoms had somewhat improved however feels over the last 10 days she has been having significant incontinence requiring usage of Shavonne pads again. Previously patient had trialed oxybutynin and felt this caused her baseline dizziness to worsen. She had been given a prescription for Myrbetriq however had never started the medication. She discusses today at length her reluctancy in taking medications. We did discuss all treatment options of lower urinary tract symptoms patient is experiencing and risks and benefits of these treatment options. In office urinalysis results reviewed with the patient today. She denies hematuria, dysuria, foul smelling urine, changes to urinary stream, flank pain, fever, and or chills. Previous workup has included a retroperitoneal ultrasound 07/04 noting bilateral kidneys with no hydronephrosis or masses. Anechoic cyst mid pole right kidney measuring 1.2 cm. Bladder is well distended and normal. Bladder jets are demonstrated. Pre void bladder volume is approximately 215 mL. Postvoid bladder volume is approximately 10 mL. She discusses she continues with pelvic floor exercises at home typically daily with Kegel's at least 2 times a day with reps of 15 at a time. She otherwise offers no other issues or concerns at this time. [facility] Medical History KARSTEN positive Autoimmune disease SOB (shortness of breath) Asthma Arthralgia Vitamin D deficiency Hyperlipemia Annual physical exam Urinary incontinence Occipital neuralgia DJD (degenerative joint disease), cervical Surgical History H/O colonoscopy No pertinent past surgical history Family History Father Heart problem Mother Cancer Sister Dementia Mental health disorder Brother Mental health disorder Sister Substance use disorder Social History Housing: House Patient Tobacco Use Status: Former Tobacco user e-Cigarette/Vaping Use: Never Used service: No Current occupational status: employed Cognitive needs: No Hearing needs: No Vision needs: Yes Review of Systems Const All systems reviewed & are unremarkable except as noted in HPI and below Physical Exam Const General: cooperative, healthy appearing, comfortable, no acute distress, well developed, alert and awake Nutritional Appearance: overweight Orientation/consciousness: patient oriented x3 Limitations: no limitations HEENT Head: Yes normal to inspection, Yes normocephalic and Yes atraumatic Ears: hearing grossly normal bilaterally Eyes General: appearance normal, both eyes and all related structures Neck Neck: Yes normal visual inspection and Yes trachea midline Chest Chest palpation & inspection: normal inspection of the chest Resp Effort & Inspection: normal respiratory effort and able to speak in complete sentences Cardio Rate: regular rate GI Inspection: Yes normal to inspection General: Yes no CVA tenderness Back/Spine/Pelvis Back: no CVA tenderness Skin General skin exam: no rashes or lesions noted Neuro General: patient oriented x3 Extrem General: Yes normal to inspection Psych Appearance: grossly normal and well kempt Mental Status: mental status grossly normal Speech and movement: Normal speech and movement present and Clear speech present Affect: normal affect Attitude: cooperative Thought process: Normal thought process present Thought content: Normal thought content present Insight: Fair insight present (Psych) Judgement: Fair judgement present (Psych) Results AMB Urinalysis, Automated UA Leukoctes 0 Diane/uL Last Edit by EDISON Means on 04/17/25 14:22 UA Nitrite Negative Last Edit by EDISON Means on 04/17/25 14:22 UA Urobilinogen 0.2 mg/dL Last Edit by EDISON Means on 04/17/25 14:22 UA Protein 0 mg/dL Last Edit by EDISON Means on 04/17/25 14:22 UA pH 7.5 Last Edit by David Gardner CCM on 04/17/25 14:22 UA Blood 0 Ezio/uL Last Edit by EDISON Means on 04/17/25 14:22 UA Specific [facility] 1.010 Last Edit by EDISON Means on 04/17/25 14:22 UA Ketone Negative Last Edit by EDISON Means on 04/17/25 14:22 UA Bilirubin 0 mg/dL Last Edit by David Gardner CCM on 04/17/25 14:22 UA Glucose 0 mg/dL Last Edit by David Gardner CCM on 04/17/25 14:22 Results Reviewed Results Reviewed: Laboratory Last Values Urine pH (Auto) 7.5 04/17/25 14:21 Specific [facility] (Auto) 1.010 04/17/25 14:21 Urine Protein (Auto) 0 mg/dL 04/17/25 14:21 Glucose (UA)(Auto) 0 mg/dL 04/17/25 14:21 Urine Ketones (Auto) Negative 04/17/25 14:21 Urine Blood (Auto) 0 Ezio/uL 04/17/25 14:21 Urine Nitrite (Auto) Negative 04/17/25 14:21 Urine Bilirubin (Auto) 0 mg/dL 04/17/25 14:21 Urine Urobilinogen (Auto) 0.2 mg/dL 04/17/25 14:21 Leukocyte Esterase (Auto) 0 Diane/uL 04/17/25 14:21 Assessment & Plan Assessment & Plan (1) Detrusor overactivity: Code(s): N32.81 - Overactive bladder Category: Medical (2) Urinary urgency: Code(s): R39.15 - Urgency of urination Category: Medical (3) Incontinence in female: Comment: Chronic urinary incontinence Code(s): R32 - Unspecified urinary incontinence Category: Medical Plan In office urinalysis results reviewed with the patient today; as noted above. We discussed further treatment options of lower urinary tract symptoms patient is experiencing as well as risks and benefits of these treatment options. All questions were answered. Start VESIcare 5 mg daily as discussed and prescribed. Continue pelvic floor exercises as discussed We discussed the importance of timed/scheduled voiding as well as bladder triggers and irritants Will follow-up in 1-3 with PVR; or sooner with any issues, concerns, and or questions. Orders: Orders AMB Urinalysis Automated Today Z13.9 - Encounter for screening, unspecified Medications: New solifenacin (Vesicare) 5 mg PO DAILY 30 tabs 3RF 30 days Patient Instructions: The patient had an opportunity to ask questions regarding the treatment plan. All questions were answered. Physical exam, labs, and imaging were discussed and reviewed in detail. As well as risks, benefits, and discussion of treatment choices. No major barriers to understanding were identified. The patient expressed understanding and agreement with the above treatment plan. The patient was made aware they should contact our office by phone for worsening of their current condition, the appearance of new symptoms, or with any questions or concerns. Compliance is encouraged with any medications and follow up testing that is ordered. It is a privilege to be allowed the opportunity to participate in? your urological care.? Again, if you have any questions or concerns If you have any questions or concerns please do not hesitate to contact me. The office is [phone]. This note is constructed using voice recognition software. While every effort has been made to ensure accuracy cardiac nurse errors may have been included. Yours sincerely, Lata Carolina, [employer] Coding Level of Care Code Est Pt Level 4 (91427) Complex EM visit Add On G2211 Diagnoses Detrusor overactivity N32.81 Urinary urgency R39.15 Incontinence in female R32
== END 2025-04-17 12:25 | disposition home or self-care (01) ==
LOC: HO.HUSH 11:51
PROVIDERS: PCP Internal Medicine; Visit Provider Nurse Practitioner Family
DX: N32.81 Overactive bladder (principal); R39.15 Urgency of urination; R32 Unspecified urinary incontinence; Z13.9 Encounter for screening, unspecified
CPT/HCPCS: 99214

== ENCOUNTER → 2025-04-17 11:50 | Outpatient (BNVA) | payer OTHER, SELFPAY | PROVIDERS: PCP Internal Medicine; Visit Provider Nurse Practitioner Family | DX: N32.81 Overactive bladder (principal); R39.15 Urgency of urination; R32 Unspecified urinary incontinence; Z13.9 Encounter for screening, unspecified | CPT/HCPCS: 81003 ==